=== PATIENT | female | born 1990 | race Caucasian/White ===

== ENCOUNTER 2020-12-06 12:59 | Emergency (ER) | payer OTHER, SELFPAY ==
--- NOTE | 2020-12-06 13:01 | ED.EAR ---
HPI - Ear Problem General Chief complaint: Ear Stated complaint: ear pain Time Seen by Provider: 12/06/20 13:01 Source: patient and RN notes reviewed History of Present Illness HPI Narrative: Patient is a 30-year-old female who presents the urgent care with complaints of left otalgia for approximately 2 to 3 days. Patient states that she has taken Tylenol for the pain. Denies of any other upper respiratory symptoms. Denies of fever, nausea, vomiting, sore throat, cough. No other acute complaints. No acute distress noted. Patient aware of the plan of care. Some parts of this dictation were generated by voice recognition software and may contain typographical and/or grammatical inaccuracies. Related Data Home Medications Medication Instructions Recorded Confirmed No Home Medications 12/06/20 12/06/20 Allergies Allergy/AdvReac Type Severity Reaction Status Date / Time sulfamethoxazole Allergy Intermediate rash Verified 12/06/20 13:30 trimethoprim Allergy Intermediate rash Verified 12/06/20 13:30 Review of Systems Review of Systems: Narrative: CONSTITUTIONAL: Denies fever, chills, or sweats. EYES: Denies visual changes, redness, or discharge. ENT: Denies rhinorrhea, congestion, sore throat. Reports of left otalgia CARDIOVASCULAR: Denies chest pain, palpitations, or edema. RESPIRATORY: Denies cough or dyspnea. GASTROINTESTINAL: Denies abdominal pain, nausea, vomiting, or diarrhea. GENITOURINARY: Denies dysuria or hematuria. SKIN: Denies rash or itching. MUSCULOSKELETAL: Denies back pain, joint pain, or myalgia. NEUROLOGIC: Denies headache, numbness, or weakness. All other systems reviewed are negative, except as documented in HPI. [facility] Surgical History Surgical History (Updated 05/06/19 @ 18:44 by SEBAS Cooper) History of tonsillectomy Hx of cholecystectomy Comments At the time of my signature, I reviewed and agree with the nursing past medical, surgical, social, and family history. There is no relevant family history pertinent to the patient complaint. Exam Narrative: Exam Narrative: GENERAL: This is a well-nourished, well-developed patient, in no apparent distress. HEAD: normocephalic, atraumatic. EYES: PERRL. Sclera clear/white. Vision is grossly intact. EARS: External ears normal, auditory canals clear and without drainage, TMs normal without perforation. Hearing grossly intact. NOSE: External nose normal with no obvious nasal discharge, nares without redness, no rhinorrhea. THROAT: Mucous membranes moist, posterior pharynx clear. NECK: Neck supple CARDIOVASCULAR: Regular rate and rhythm without murmurs, gallops, or rubs. RESPIRATORY: Clear to auscultation. Breath sounds equal bilaterally. No wheezes, rales, or rhonchi. SKIN: warm, intact with no suspicious lesions or rash, good texture and turgor. NEURO: awake, alert, and oriented to person, place and time. There were no obvious focal neurologic abnormalities. EXTREMITIES: No clubbing, cyanosis, or edema. Course Vital Signs Vital signs: Vital Signs Temperature 99.0 F 12/06/20 13:05 Pulse Rate 82 12/06/20 13:05 Respiratory Rate 18 12/06/20 13:05 Blood Pressure 140/88 12/06/20 13:05 Pulse Oximetry 99 12/06/20 13:05 Temperature 99.0 F 12/06/20 13:05 Pulse Rate 82 12/06/20 13:05 Respiratory Rate 18 12/06/20 13:05 Blood Pressure 140/88 12/06/20 13:05 Pulse Oximetry 99 12/06/20 13:05 Reviewed Medical Decision Making MDM Narrative Medical decision making narrative: Advised the patient to use an [id number] oral histamine daily such as Claritin or Zyrtec. Use of Flonase and Benadryl prior to bedtime. Use a warm compress as well as Tylenol/ibuprofen as needed for pain. There is no current infection. Do not submerge her head under any water and do not put anything in the ear such as Q-tips, peroxide, [id number] eardrops. Follow-up with your PCP within 2 to 5 days or for worsening symptoms or failur
[2020-12-06 13:05] VITALS: BP 140/88; PULSE 82; RESP 18; TEMP 37.2; O2SAT 99
== END 2020-12-06 13:12 | disposition home or self-care (01) ==
PROVIDERS: Emergency Provider Nurse Practitioner Family
DX: H92.02 Otalgia, left ear (principal)
CPT/HCPCS: 99211; G0463

== ENCOUNTER 2021-10-06 12:51 | Emergency (ER) | payer OTHER, SELFPAY ==
--- NOTE | ~2021-10-06 | XR_ITS ---
EXAMINATION: XR foot LT min 3V DATE: 10/06/2021 13:34 INDICATION: Diabetic with left foot injury after stepping on glass. TECHNIQUE: Dorsoplantar, two oblique and lateral views of the left foot were obtained. COMPARISON: None. FINDINGS: Alignment is normal. No fracture. Joint spaces appear relatively preserved throughout the left foot. Moderate-sized plantar calcaneal spur. Soft tissues are unremarkable. No evident radiopaque foreign b odies. IMPRESSION: 1. No radiopaque foreign body or acute osseous abnormality. Reviewed, dictated and finalized at location A.
[2021-10-06 13:00] VITALS: BP 157/90; PULSE 96; RESP 17; TEMP 37.2; O2SAT 100
--- NOTE | 2021-10-06 13:11 | ED.SKABFB ---
HPI - Skin/Abscess/Foreign Bdy General Chief complaint: Skin/Abscess/Foreign Body Stated complaint: Left Foot Injury Time Seen by Provider: 10/06/21 13:12 Source: RN notes reviewed and old records reviewed Mode of arrival: ambulatory Limitations: no limitations History of Present Illness HPI narrative: 31-year-old female who presents to [facility] with complaints of possible foreign body in her left foot. Patient states she stepped on a piece of glass last night and wants to make sure that nothing is remaining in her left foot is continued to be tender and is diabetic.Small pinpoint puncture wound to the mid plantar aspect of her left foot no drainage noted minimal bruising present, no visible or palpable debris noted.Patient has full mobility of left foot with strong left pedal pulse present. Onset (ago): hour(s) (last pm) Location: L foot Quality: aching Related Data Home Medications Medication Instructions Recorded Confirmed amlodipine 10 mg PO DAILY 10/06/21 10/06/21 chlorthalidone 25 mg PO DAILY 10/06/21 10/06/21 metformin 500 mg PO DAILY 10/06/21 10/06/21 norethindrone (contraceptive) 0.35 mg PO DAILY 10/06/21 10/06/21 potassium chloride [Klor-Con M20] 20 meq PO DAILY 10/06/21 10/06/21 Allergies Allergy/AdvReac Type Severity Reaction Status Date / Time sulfamethoxazole Allergy Intermediate rash Verified 10/06/21 13:05 trimethoprim Allergy Intermediate rash Verified 10/06/21 13:05 Review of Systems Review of Systems: CONSTITUTIONAL: Denies fever, chills, or sweats. EYES: Denies visual changes, redness, or discharge. ENT: Denies rhinorrhea, congestion, sore throat, or otalgia. CARDIOVASCULAR: Denies chest pain, palpitations, or edema. RESPIRATORY: Denies cough or dyspnea. GASTROINTESTINAL: Denies abdominal pain, nausea, vomiting, or diarrhea. GENITOURINARY: Denies dysuria or hematuria. SKIN: Denies rash or itching.small pinpoint puncture wound to plantar aspect of left foot no swelling of area or acute redness. MUSCULOSKELETAL: Denies back pain, joint pain, or myalgia. NEUROLOGIC: Denies headache, numbness, or weakness. PSYCHIATRIC: Denies anxiety or depression. All systems reviewed & are unremarkable except as noted in HPI and below PMFSH Past Medical History Medical History (Updated 10/07/21 @ 10:04 by Irais Bassett NP) Diabetes Hypertension Surgical History Surgical History History of tonsillectomy Hx of cholecystectomy Social History Social History (Updated 10/06/21 @ 13:20 by Irais Bassett NP) Gender identity (if verbalized by the patient): Female Comments At time of signature, agree with nursing past medical, surgical, social and family history. There is no relevant family history pertinent to the presenting complaint Exam Narrative: GENERAL: Well-appearing, well-nourished,morbid obese and in no acute distress. HEAD: Normocephalic, atraumatic. EYES: PERRLA and EOMI. ENT: Nares clear, no rhinorrhea or epistaxis. Mucous membranes moist.TM's normal with good light reflex throat pink with no lesions or exudates, tonsils absent NECK: Supple.no lymphadenopathy CHEST: Clear to auscultation. No respiratory distress.SAO2 100% on room air HEART: Regular rate and rhythm. No murmur heard. Normal peripheral pulses. ABDOMEN: Soft, nontender, nondistended, normal active bowel sounds. EXTREMITIES: Normal range of motion. No edema.Small puncture wound to plantar aspect of mid left foot with no swelling or debris noted or any redness, examination under light and palpated with no foreign body identified, circulation sensation and mobility is intact SKIN: Warm, dry, no rash. NEURO: No focal deficits. Alert and oriented x3. Course Course Level of Care: Express Care Visit Vital Signs Vital signs: Vital Signs Temperature 37.2 C 10/06/21 13:00 Pulse Rate 96 10/06/21 13:00 Respiratory Rate 17 10/06/21 13:00 Blood Pressure 157/90 H
--- NOTE | 2021-10-06 13:15 | PC.NURSE ---
BP elevated, pt states she did not take her BP medications this morning . Encouraged to do so when she returns home. [employer] aware
== END 2021-10-06 13:58 | disposition home or self-care (01) ==
PROVIDERS: Emergency Provider Registered Nurse; PCP Family Medicine
DX: S91.312A Laceration without foreign body, left foot, initial encounter (principal); W25.XXXA Contact with sharp glass, initial encounter; E11.9 Type 2 diabetes mellitus without complications; I10 Essential (primary) hypertension
CPT/HCPCS: 73630; 99213; G0463

== ENCOUNTER 2022-01-02 10:01 | Emergency (ER) | payer OTHER, SELFPAY ==
[2022-01-02 10:10] VITALS: BP 144/88; PULSE 72; RESP 20; TEMP 37.3; O2SAT 100
--- NOTE | 2022-01-02 10:10 | ED.DENTAL ---
HPI - Dental/Oral General Chief complaint: Dental/Oral Stated complaint: Right Ear Pain/Toothache Time Seen by Provider: 01/02/22 10:11 Source: patient Mode of arrival: ambulatory Limitations: no limitations History of Present Illness HPI Narrative: Ms. Henderson is a 31-year-old female patient presenting to the clinic today with complaints of dental pain and right ear pain x3 days. She denies any fever or chills. She denies any URI symptoms. She denies any known exposure to COVID, flu, or strep. Related Data Home Medications Medication Instructions Recorded Confirmed amlodipine 10 mg tablet 10 mg PO DAILY 10/06/21 10/06/21 chlorthalidone 25 mg tablet 25 mg PO DAILY 10/06/21 10/06/21 metformin 500 mg tablet,extended 500 mg PO DAILY 10/06/21 10/06/21 release 24 hr norethindrone (contraceptive) 0.35 0.35 mg PO DAILY 10/06/21 10/06/21 mg tablet potassium chloride 20 mEq 20 meq PO DAILY 10/06/21 10/06/21 tablet,extended release(part/cryst) (Klor-Con M) Allergies Allergy/AdvReac Type Severity Reaction Status Date / Time sulfamethoxazole Allergy Intermediate rash Verified 10/06/21 13:05 trimethoprim Allergy Intermediate rash Verified 10/06/21 13:05 Review of Systems Review of Systems: pertinent positives per HPI. Patient denies any fever, chills, rash, headache, visual changes, dizziness, cough, runny nose, sore throat, shortness of breath, chest pain, palpitations, nausea, vomiting, diarrhea, constipation, abdominal pain, or any urinary issues. [facility] Past Medical History Medical History Diabetes Hypertension Surgical History Surgical History History of tonsillectomy Hx of cholecystectomy Social History Social History Gender identity (if verbalized by the patient): Female Comments At the time of my signature, I reviewed and agree with the nursing past medical, surgical, social, and family history. There is no relevant family history pertinent to the patient complaint. Exam Narrative: General: Well-developed, well nourished, in no apparent distress Head: Normocephalic, atraumatic Eyes: Pupils equally round and reactive to light bilaterally, EOM intact, sclera and conjunctive clear, no discharge, lids normal Ears: Left TMs intact and clear, right TM intact, bulging, red, ear canals clear, no drainage, grossly hearing normal. Nose: Nares patent, no discharge, no inflammation, no sinus tenderness. Mouth: Oropharynx without lesions or masses, very poor dentition, MMM. Tooth pain number #3 with cavity and redness Neck: Supple, trachea midline, no enlargement of anterior or posterior cervical nodes, no thyroid masses or goiter palpable. Cardio: Regular rate and rhythm, s1 and s2 normal, no murmur appreciated. Resp: Clear to auscultation bilaterally anteriorly and posteriorly, no rhonchi, rales, wheezing or rubs Course Course Emergency Course: Portions of this record may have been created with voice recognition software. Level of Care: Express Care Visit Vital Signs Vital signs: Vital signs reviewed MDM - Dental/Oral MDM Narrative Medical decision making narrative: At the time of visit patient is resting comfortably on the exam table. Patient has right otitis media's and right upper dental infection to the #3 molars. We will send in a prescription for some amoxicillin and supportive measures were discussed with the patient she voiced understanding of discharge instructions and agrees to treatment plan. Differential Diagnosis Differential diagnosis: Likely dental caries, toothache, dental abscess, fracture of tooth and other (Right otitis media, otitis externa, eustachian tube dysfunction, otalgia) Discharge Plan Discharge Clinical Impression: Toothache, Acute right otitis media Patient Disposition: [facility]
== END 2022-01-02 10:28 | disposition home or self-care (01) ==
PROVIDERS: Emergency Provider Nurse Practitioner Family; PCP Family Medicine
DX: K08.89 Other specified disorders of teeth and supporting structures (principal); H66.91 Otitis media, unspecified, right ear; E11.9 Type 2 diabetes mellitus without complications; I10 Essential (primary) hypertension; Z79.84 Long term (current) use of oral hypoglycemic drugs
CPT/HCPCS: 99213; G0463

== ENCOUNTER 2022-01-07 11:53 | Emergency (ER) | payer OTHER, SELFPAY ==
[2022-01-07 11:56] VITALS: BP 155/118; PULSE 81; RESP 20; TEMP 37; O2SAT 100
--- NOTE | 2022-01-07 11:56 | ED.EAR ---
HPI - Ear Problem General Chief complaint: Ear Stated complaint: Right Ear Pain Time Seen by Provider: 01/07/22 11:55 Source: patient Mode of arrival: ambulatory Limitations: no limitations History of Present Illness HPI Narrative: Ms. Henderson is a 31-year-old female patient presenting to the clinic today with complaints of right ear pain. I saw her on 02 January and she was given amoxicillin for right ear infection. She reports that the pain is still there and she is on 5 days of antibiotics. She denies any fever chills Related Data Home Medications Medication Instructions Recorded Confirmed amlodipine 10 mg tablet 10 mg PO DAILY 10/06/21 01/07/22 chlorthalidone 25 mg tablet 25 mg PO DAILY 10/06/21 01/07/22 Allergies Allergy/AdvReac Type Severity Reaction Status Date / Time sulfamethoxazole Allergy Intermediate rash Verified 10/06/21 13:05 trimethoprim Allergy Intermediate rash Verified 10/06/21 13:05 Review of Systems Review of Systems: Pertinent positives per HPI. Patient denies any fever, chills, rash, headache, visual changes, dizziness, cough, runny nose, sore throat, shortness of breath, chest pain, palpitations, nausea, vomiting, diarrhea, constipation, abdominal pain, or any urinary issues. PEND[facility] SALE TO [facility] Past Medical History Medical History Diabetes Hypertension Surgical History Surgical History History of tonsillectomy Hx of cholecystectomy Social History Social History Gender identity (if verbalized by the patient): Female Comments At the time of my signature, I reviewed and agree with the nursing past medical, surgical, social, and family history. There is no relevant family history pertinent to the patient complaint. Exam Narrative: General: Well-developed, morbidly obese, in no apparent distress Head: Normocephalic, atraumatic Eyes: Pupils equally round and reactive to light bilaterally, EOM intact, sclera and conjunctive clear, no discharge, lids normal Ears: Right TMs intact and dull and congested, left TM clear and intact, ear canals clear, no drainage, grossly hearing normal. Nose: Nares patent, no discharge, no inflammation, no sinus tenderness. Mouth: Oropharynx without lesions or masses, good dentition, MMM. Neck: Supple, trachea midline, no enlargement of anterior or posterior cervical nodes, no thyroid masses or goiter palpable. Cardio: Regular rate and rhythm, s1 and s2 normal, no murmur appreciated. Resp: Clear to auscultation bilaterally anteriorly and posteriorly, no rhonchi, rales, wheezing or rubs right Course Course Emergency Course: Portions of this record may have been created with voice recognition software. Level of Care: Express Care Visit Vital Signs Vital signs: Vital signs reviewed Medical Decision Making MDM Narrative Medical decision making narrative: At the time of visit patient is resting comfortably on the exam table. It appears that the right otitis media has mostly resolved but she still has some congestion and pressure behind the right tympanic membrane. I will give her a prescription for some prednisone to help dry up the secretions and open up the eustachian tube dysfunction. Supportive measures were discussed with the patient she voiced understanding of discharge instructions and agrees to treatment plan Differential Diagnosis Differential Diagnosis: Otitis media, otitis externa, otitis serous, eustachian tube dysfunction Discharge Plan Discharge Clinical Impression: Acute dysfunction of right eustachian tube Patient Disposition: Home, Self-Care Condition: Stable Instructions: Antibiotic Form, Earache (ED) Additional Instructions: Take prednisone as prescribed Continue taking the amoxicillin until finished Tylenol/motrin as needed for pain May
[2022-01-07 12:15] VITALS: BP 110/60
== END 2022-01-07 12:15 | disposition home or self-care (01) ==
PROVIDERS: Emergency Provider Nurse Practitioner Family; PCP Family Medicine
DX: H69.91 Unspecified Eustachian tube disorder, right ear (principal); E11.9 Type 2 diabetes mellitus without complications; I10 Essential (primary) hypertension
CPT/HCPCS: 99213; G0463

== ENCOUNTER 2022-09-03 18:57 | Emergency (ER) | payer OTHER, SELFPAY ==
[2022-09-03 19:03] VITALS: BP 145/99; PULSE 91; RESP 16; TEMP 36.6; O2SAT 100
--- NOTE | 2022-09-03 19:19 | ED.SKABFB ---
HPI - Skin/Abscess/Foreign Bdy General Chief complaint: Skin/Abscess/Foreign Body Stated complaint: Skin Sore Source: patient and RN notes reviewed History of Present Illness HPI narrative: 32 yo F presents to urgent care with complaints of swelling and redness to right middle finger, next to her nail. Pt states she has had this for the last 4 days. Pt reports some numbness and tingling to the area. Denies any drainage or fevers. Pt has been soaking it in warm water with antibacterial soap. Related Data Home Medications Medication Instructions Recorded Confirmed amlodipine 10 mg tablet 10 mg PO DAILY 09/03/22 09/03/22 chlorthalidone 25 mg tablet 25 mg PO DAILY 09/03/22 09/03/22 Allergies Allergy/AdvReac Type Severity Reaction Status Date / Time sulfamethoxazole Allergy Intermediate rash Verified 09/03/22 19:08 trimethoprim Allergy Intermediate rash Verified 09/03/22 19:08 Review of Systems Review of Systems: CONSTITUTIONAL: Denies fever, chills, or sweats. EYES: Denies visual changes, redness, or discharge. ENT: Denies otalgia and sore throat CARDIOVASCULAR: Denies chest pain, palpitations, or edema. RESPIRATORY: Denies cough or dyspnea. GASTROINTESTINAL: Denies abdominal pain, nausea, vomiting, or diarrhea. GENITOURINARY: Denies dysuria or hematuria. SKIN: Right middle finger redness MUSCULOSKELETAL: Denies back pain, joint pain, or myalgia. NEUROLOGIC: Denies headache, numbness, or weakness. Pertinent positives per HPI. PMFSH Past Medical History Medical History Diabetes Hypertension Surgical History Surgical History History of tonsillectomy Hx of cholecystectomy Social History Social History Gender identity (if verbalized by the patient): Female Comments At the time of my signature, I reviewed and agree with the nursing past medical, surgical, social, and family history. There is no relevant family history pertinent to the patient complaint. Exam Narrative: GENERAL: This is a well-nourished, well-developed patient, in no apparent distress. HEAD: normocephalic, atraumatic. EYES: Sclera clear/white. Vision is grossly intact. EARS: External ears normal, auditory canals clear and without drainage. Hearing grossly intact. NECK: Neck supple, non-tender without lymphadenopathy, masses or thyromegaly. CARDIOVASCULAR: Regular rate RESPIRATORY: No respiratory distress SKIN: right middle finger noted to have erythremia and swelling to side of nailbed with small area of fluctuance. no drainge noted. NEURO: awake, alert, and oriented to person, place and time. There were no obvious focal neurologic abnormalities. EXTREMITIES: No clubbing, cyanosis, or edema. No joint tenderness, effusion, or edema noted. Course Course Level of Care: Express Care Visit Vital Signs Vital signs: Vital Signs Temperature 98 F 09/03/22 19:03 Pulse Rate 91 09/03/22 19:03 Respiratory Rate 16 09/03/22 19:03 Blood Pressure 145/99 H 09/03/22 19:03 Pulse Oximetry 100 09/03/22 19:03 Oxygen Delivery Room Air 09/03/22 19:03 Temperature 98 F 09/03/22 19:03 Pulse Rate 91 09/03/22 19:03 Respiratory Rate 16 09/03/22 19:03 Blood Pressure 145/99 H 09/03/22 19:03 Pulse Oximetry 100 09/03/22 19:03 Oxygen Delivery Room Air 09/03/22 19:03 Reviewed Procedures Abscess I/D hand: Date of Incision: 09/03/22 Time of Incision: 19:10 Side (if applicable): right Sedation/analgesia: none Local Anesthetic: none Technique: needle aspiration Irrigation: No Packing used?: none I&D Results: Pus Complications: other (none) Abcess I&D Additional Comments: paronychia drained. culture sent. pt tolerated well. dressed with Abx ointment and bandaid.
== END 2022-09-03 19:30 | disposition home or self-care (01) ==
PROVIDERS: Emergency Provider Nurse Practitioner Family; PCP Family Medicine
DX: L03.011 Cellulitis of right finger (principal); E11.9 Type 2 diabetes mellitus without complications; I10 Essential (primary) hypertension
CPT/HCPCS: 10160; 87070; 87077; 87205; 99213; G0463

== ENCOUNTER 2024-03-15 12:17 | Emergency (ER) | payer OTHER, SELFPAY ==
--- NOTE | ~2024-03-15 | XR_ITS ---
EXAMINATION: XR foot LT min 3V DATE: 03/15/2024 14:03 INDICATION: Left foot pain. TECHNIQUE: 4 views of left foot were obtained. COMPARISON: Left foot radiographs 10/06/2021 FINDINGS: Alignment is normal. No fracture. There is mild osteoarthritis of first metatarsophalangeal joint and some of the interphalangeal joints and talonavicular joint. There are enthesophytes at the posterior and plantar aspects of calcaneal tuberosity. IMPRESSION: 1. Mild polyarticular osteoarthritis. Reviewed, dictated and finalized at location B.
[2024-03-15 12:30] VITALS: BP 147/89; PULSE 81; RESP 20; TEMP 37.1; O2SAT 100
--- NOTE | 2024-03-15 14:04 | ED.LOWEXIN ---
HPI - Extremity Injury (Lower) General Chief Complaint: Extremity Injury, Lower Stated Complaint: Knee/foot injury Time Seen by Provider: 03/15/24 12:40 Source: patient, RN notes reviewed and old records reviewed Mode of arrival: ambulatory Limitations: no limitations History of Present Illness HPI Narrative: 33-year-old female to Express Care with complaint of intermittent right knee discomfort and popping. Patient states that approximately 1 week ago when she went to sit down at a movie theater she felt a pop in her knee with mild discomfort. Patient denies any prior injury, surgery, numbness, tingling, weakness. Patient has attempted to treat symptoms at home with Tylenol with little relief. Patient also complaining of left lateral foot pain 6/10 with ambulation. Patient states that 2 weeks ago she went on a 30 minute walk and has had the pain ever since. Patient denies injury, prior history, numbness, tingling, weakness. Patient has treated with Tylenol and massage with little relief. Patient ambulates with steady gait. Patient resting comfortably in exam room in no acute distress. Related Data Home Medications Medication Instructions Recorded Confirmed amlodipine 10 mg tablet 10 mg PO DAILY 09/03/22 03/15/24 chlorthalidone 25 mg tablet 25 mg PO DAILY 09/03/22 03/15/24 irbesartan 150 mg tablet 150 mg PO DAILY 03/15/24 03/15/24 metformin 500 mg tablet,extended 500 mg PO DAILY 03/15/24 03/15/24 release 24 hr norelgestromin 150 mcg-e.estradiol See Rx Instructions .Route .COMPLEX 03/15/24 03/15/24 35 mcg/24 hr weekly transderm patch (Zafemy) phentermine 15 mg capsule 15 mg PO DAILY 03/15/24 03/15/24 Allergies Allergy/AdvReac Type Severity Reaction Status Date / Time sulfamethoxazole Allergy Intermediate rash Verified 09/03/22 19:08 trimethoprim Allergy Intermediate rash Verified 09/03/22 19:08 Review of Systems Review of Systems: All systems reviewed & are unremarkable except as noted in HPI and below Constitutional: Constitutional: Reports no additional constitutional complaints Eyes: Eyes: Reports no additional eye complaints ENT: Reports system reviewed and no additional complaints, except as documented Cardiovascular: Cardiovascular: Reports no additional cardiovascular complaints, Denies chest pain and Denies dyspnea Respiratory: Respiratory: Reports no additional respiratory complaints, Denies cough and Denies dyspnea Musculoskeletal: Musculoskeletal: Reports as per HPI and Reports arthralgias ( Right knee; left lateral foot) Neurologic: Reports system reviewed and no additional complaints, except as documented Psychiatric: Psychiatric: Reports no additional psychiatric complaints [facility] Past Medical History Medical History Diabetes Hypertension Surgical History Surgical History History of tonsillectomy Hx of cholecystectomy Social History Social History Gender identity (if verbalized by the patient): Female Comments At the time of my signature, I reviewed and agree with the nursing past medical, surgical, social, and family history. There is no relevant family history pertinent to the patient complaint. Exam Const: General: cooperative, comfortable, no acute distress, alert, ill appearing chronically, well nourished and obese Nutritional Appearance: well nourished Orientation/consciousness: patient oriented x3 Limitations: no limitations HENMT: Head: normal to inspection Ears: external ears normal Face/Nose/Sinus: Normal external nose present, Normal nares present, normal facial exam, No erythema and No edema Face and sinus: normal facial exam, no erythema and no edema Mouth: Yes Normal oral and palatal mucosa present Eyes: General: appearance normal, both eyes and all related structures Neck: Neck: normal visual inspection, full ROM and no meningeal signs Chest: Chest palpation & inspection: normal inspection of the chest Resp: Effort & Inspection: normal respiratory effort and able to speak in complete sentences Auscultation: clear to auscultation bilaterally Cardio: Jugular venous distension: no JVD Rate: regular rate Rhythm: regular rhythm Back/Spine/Pelvis: Cervical Spine: cervical ROM normal Skin: General skin exam: normal color, no rashes or lesions noted and turgor normal Neuro: General: patient oriented x3, gait normal, moves all extremities and no meningeal signs Speech: normal speech Gait exam (Neuro): Normal gait present Extrem: General: full ROM and capillary refill normal Right lower extremity: full ROM, normal capillary refill and knee Details: normal ROM, Mellissa's Test Details: negative medially and laterally, Apley's Test Details: negative and crepitus Location: at the kneww; no tenderness, no swelling and no ecchymosis; no cyanosis and no edema Left lower extremity: foot Details: normal capillary refill and tenderness Location: of the lateral foot ( tenderness) Location: in the mid-section Psych: Appearance: grossly normal and well kempt Course Course Emergency Course: Some parts of this dictation were generated by voice recognition software and may contain typographical and/or grammatical inaccuracies. Level of Care: Express Care Visit Vital Signs Vital signs: Vital Signs Temperature 37.1 C 03/15/24 12:30 Pulse Rate 81 03/15/24 12:30 Respiratory Rate 20 03/15/24 12:30 Blood Pressure 147/89 H 03/15/24 12:30 Pulse Oximetry 100 03/15/24 12:30 Oxygen Delivery Room Air 03/15/24 12:30 Temperature 37.1 C 03/15/24 12:30 Pulse Rate 81 03/15/24 12:30 Respiratory Rate 20 03/15/24 12:30 Blood Pressure 147/89 H 03/15/24 12:30 Pulse Oximetry 100 03/15/24 12:30 Oxygen Delivery Room Air 03/15/24 12:30 reviewed MDM - Extremity Injury (Lower) MDM Narrative Medical decision making narrative: 33-year-old female to Express Care with complaint of intermittent right knee discomfort and popping. Patient states that approximately 1 week ago when she went to sit down at a movie theater she felt a pop in her knee with mild discomfort. Patient denies any prior injury, surgery, numbness, tingling, weakness. Patient has attempted to treat symptoms at home with Tylenol with little relief. Patient also complaining of left lateral foot pain 6/10 with ambulation. Patient states that 2 weeks ago she went on a 30 minute walk and has had the pain ever since. Patient denies injury, prior history, numbness, tingling, weakness. Patient has treated with Tylenol and massage with little relief. Patient ambulates with steady gait. Patient resting comfortably in exam room in no acute distress. on exam, intermittent crepitus with ROM of right knee. Left mid dorsal lateral foot tenderness with palpation. exam otherwise unremarkable. radiology left foot impression: Mild polyarticular osteoarthritis Patient is sitting comfortably in exam room nontoxic in appearance. Patient appropriate for outpatient treatment and follow-up. Discharge instructions reviewed with patient, as well as provided in writing per nursing staff. The instructions also include specific and strict return/GO TO THE ER as well as f/u information. All questions have been answered, and the patient deny any further questions with discharge and discharge plan. Some parts of this dictation were generated by voice recognition software and may contain typographical and/or grammatical inaccuracies. Differential Diagnosis Differential diagnosis: Likely ankle sprain and strain, acute internal derangement of knee, fracture of femur, fracture of hip, puncture wound of foot, fracture of toe and ankle fracture Imaging Data Radiologist's impression: EXAMINATION: XR foot LT min 3V DATE: 03/15/2024 14:03 INDICATION: Left foot pain. TECHNIQUE: 4 views of left foot were obtained. COMPARISON: Left foot radiographs 10/06/2021 FINDINGS: Alignment is normal. No fracture. There is mild osteoarthritis of first metatarsophalangeal joint and some of the interphalangeal joints and talonavicular joint. There are enthesophytes at the posterior and plantar aspects of calcaneal tuberosity. IMPRESSION: 1. Mild polyarticular osteoarthritis Discharge Plan Discharge Clinical Impression: Acute pain of right knee, Osteoarthritis of foot, left Patient Disposition: Home, Self-Care Condition: Stable Instructions: Osteoarthritis (ED), Knee Pain (ED) Additional Instructions: please review touch instructions regarding knee pain and osteoarthritis and implement suggestions as tolerated. Rest, ice, elevate alternate Tylenol ibuprofen as needed for new or worsening symptoms go directly to the emergency department Prescriptions: No Action chlorthalidone 25 mg tablet 25 mg PO DAILY amlodipine 10 mg tablet 10 mg PO DAILY phentermine 15 mg capsule 15 mg PO DAILY irbesartan 150 mg tablet 150 mg PO DAILY metformin 500 mg tablet extended release 24 hr 500 mg PO DAILY norelgestromin-ethin.estradiol [Zafemy] 150-35 mcg/24 hr patch weekly See Rx Instructions .ROUTE .COMPLEX Rx Instructions: PRESCRIBED Follow-up/Referrals: Belen,Kely Casey MD [Primary Care Provider] -
== END 2024-03-15 14:50 | disposition home or self-care (01) ==
PROVIDERS: Emergency Provider Nurse Practitioner Family; PCP Family Medicine
DX: M25.561 Pain in right knee (principal); M19.072 Primary osteoarthritis, left ankle and foot; E11.9 Type 2 diabetes mellitus without complications; Z79.84 Long term (current) use of oral hypoglycemic drugs; I10 Essential (primary) hypertension
CPT/HCPCS: 73630; 99213; G0463

== ENCOUNTER 2024-06-15 12:38 | Emergency (ER) | payer OTHER, SELFPAY ==
[2024-06-15 12:41] VITALS: BP 156/97; PULSE 87; RESP 16; TEMP 36.9; O2SAT 100
--- OUTSIDE RECORDS SUMMARY | 2024-06-15 13:27 | XMS_ITS | Clinical Summary ---
Author Organization [facility] [address] Address [address] [place] [address] Care Team Providers Care Blending Supervisor Name Role Phone Kely Torres MD Primary Care Provider [phone] Allergies Active Allergy Reactions Criticality Noted Date Comments Sulfamethoxazole-Trimethoprim Rash Medium 2017 Sulfa (Sulfonamide Antibiotics) Rash Medium 02/15 Medications metFORMIN XR (GLUCOPHAGE XR) 500 mg 24 hr tablet Take 1 tablet (500 mg total) by mouth daily with breakfast 30 tablet 2 Active norethindrone (MICRONOR) 0.35 mg tabletIndications: Contraception Take 1 tablet (0.35 mg total) by mouth daily 28 tablet 12 2 Active amLODIPine (NORVASC) 10 mg tablet TAKE 1 TABLET BY MOUTH EVERY DAY 14 tablet 2 Active chlorthalidone 25 mg tablet TAKE 1 TABLET (25 MG TOTAL) BY MOUTH DAILY. 14 tablet 2 Active Active Problems Problem Noted Date Diagnosed Date Prediabetes 07/09/2021 Assessment & Plan (07/09/2021 1:13 PM LINE INSTALLER TROLLEY): A1C 5.8. - Continue Metformin 500mg daily - Diet and Exercise - Repeat 3-6 months Essential hypertension 06/26/2021 Assessment & Plan (07/17/2021 3:28 PM LINE INSTALLER TROLLEY): Improved. Continue current medications. Refills given. F/u 3 months Assessment & Plan (07/09/2021 12:56 PM LINE INSTALLER TROLLEY): Ongoing - Increase amlodipine to 10 mg daily. Start chlorthalidone 25 mg daily. Risks/benefits and alternatives discussed. - recheck potassium level in 1 week -continue low-salt diet/DASH diet - continue to work on weight loss - repeat blood pressure check in 1 Assessment & Plan (06/26/2021 2:14 PM LINE INSTALLER TROLLEY): New diagnosis. Start Amlodipine 5 mg daily. Risks/benefits and alternatives discussed.Home BP monitoring x2 week. Log given DASH and low carb diet - handout given F/u 2 weeks Morbid obesity with BMI of 50.0-59.9, adult 01/2022 Assessment & Plan (07/17/2021 3:28 PM LINE INSTALLER TROLLEY): Continue to diet and exercise Assessment & Plan (07/09/2021 12:58 PM LINE INSTALLER TROLLEY): Reviewed lab results with patient today. No concerning results Continue to work on diet and exercise Encouraged evaluation with bariatric surgery to discuss treatment options Assessment & Plan (06/26/2021 2:15 PM LINE INSTALLER TROLLEY): BMI 57 Dietary and exercise recommendations given Will review labs ordered 05/2021 Bariatric surgery consult placed Will continue to monitor weight Heel spur, left 08/07/2018 Pain of left heel 08/07/2018 Immunizations Name Administration Dates Next Due DTP 11/23/1996, 4,1991,09/11,1991 Hep A, Pediatric 12/29/2005 Hep B, Adolescent or Pediatric 11/23/1996,1996,05/28/1996 HiB 08/14/1993, 2,1991,07/15 Influenza, Quadrivalent, Elizabeth l Culture-based MDCK, Preservative Free, Antibiotic Free, Intramuscular 03/22/2021 MMR 01/28/1995,08/14/1993 Meningococcal C Conjugate 12/29/2005 OPV 11/23/1996, 4,1991,07/15 Pneumococcal Polysaccharide PPV23 03/22/2021 Td, adsorbed 12/29/2005 Varicella 12/20/2001 Surgical History Surgery Date Site/Laterality Comments CHOLECYSTECTOMY TONSILECTOMY, ADENOIDECTOMY, BILATERAL MYRINGOTOMY AND TUBES Bilateral Social History Tobacco Use Types Packs/Day Years Used Date Smoking Tobacco: Never Smokeless Tobacco: Never Tobacco Cessation:Counseling Given: Yes AUDIT-C Answer Date Recorded Q1: How often do you have a drink containing alc ohol? Never 06/06/2021 Average Number of Drinks Not on file 022 Frequency of Binge Drinking Not on file 05/19 PHQ-2 Answer Date Recorded PHQ-2 Total Score (If total score is 3 or more points, staff should administer the PHQ-9) 0 06/26/2021 Personal Safety Answer Date Recorded Getting School Help Needed Not on file 07/31 Comments No Sex and Gender Information Value Date Recorded Sex Assigned at Not on file Legal Sex Female 7:41 AM LINE INSTALLER [facility] Gender Identity Female 10/12/2021 12:47 PM CDT Sexual Orientation Straight 06/21/2021 7: 09 PM LINE INSTALLER [facility] Occupation Industry Job Start Date Job End Date Not on file Not on file Not on file Not on file Obstetrics History Last Filed Vital Signs Vital Sign Reading Time Taken Comments Blood Pressure 120/80 07/17/2021 1:34 PM LINE INSTALLER [facility]OLLEY Pulse 101 07/17/2021 1:34 PM LINE INSTALLER [facility]OLLEY Temperature 36.3 ??C (97.3 ??F) 07/17/2021 1:34 PM CS T Respiratory Rate 20 07/17/2021 1:34 PM LINE INSTALLER [facility]OLLEY Oxygen Saturation 98% 07/17/2021 1:34 PM LINE INSTALLER [facility]OLLEY Inhaled Oxygen Concentration - - Weight 141.5 kg (312 lb) 07/17/2021 1:34 PM LINE INSTALLER [facility]LEY Height 157.5 cm (5' 2 ) 07/09/2021 11:29 AM LINE INSTALLER TROLLEY Body Mass Index 57.07 07/09/2021 11:29 AM LINE INSTALLER [facility]LEY Plan of Treatment Health Maintenance Due Date Last Done Comments Hepatitis C Screening 1990 Varicella Vaccines (2 of 2 - 2-dose childhood series) 03/14/2002 12/20/2001 DTaP/Tdap/Td Vaccine (6 - Tdap) 12/30/2005 12/29/2005, 11/23/1996, 08/14/1993, Additional history exists Cervical Cancer Screening 06/06/2022 06/06/2021 Regular Well Visit/Exam 18-64 06/06/2022 06/06/2021 Depression Screening 06/26/2022 06/26/2021 Covid-19 Vaccine ( season) 2024 03/22/2021, 09/28/2020 Influenza Vaccine (#1) 2024 04/16/2022, 2020 Pneumococcal vaccine <65 Aged Out 03/22/2021 No longer eligible based on patient's age to complete this topic HPV Vaccines Aged Out No longer eligi ble based on patient's age to complete this topic Procedures Procedure Name Priority Date/Time Associated Diagnosis Comments PAP AND HIGH RISK HPV, REFLEX TO GENOTYPING Routine 06/06/2021 9:40 AM LINE INSTALLER [facility]OLLEY Encounter for screening for malignant neoplasm of cervix from Last 3 Months or Most Recently Relevant to Health Maintenance Results * Pap and High Risk HPV, reflex to Genotyping (06/06/2021 9:40 AM LINE INSTALLER TROLLEY) Swab (Pap test) 06/06/2021 9 :40 AM LINE INSTALLER TROLLEY 06/06/2021 9:40 AM LINE INSTALLER TROLLEY Narrative PATHOLOGY [facility] ([facility]) - 06/10/2021 3:03 PM LINE INSTALLER TROLLEY [facility] Department of Pathology [address] [place] [address] Final Report with Addendum Note to Patients: This report may contain a detailed description of human tissue sent by a health care provider to the laboratory for pathologic evaluation. The content of this report is essential for diagnosis and may provide important critical findings. This information may be unfamiliar to patients to review without a medical professional present. It is advised that the patient review this report in the presence of a health care provider who can answer questions and explain the details. Patient Name: ??SHIRLEY HENDERSON I. Address: ??[address] [place] [address] [address], ?? [place], [place] [address] Gender: ??F : ??1990 (Age: 31) Service: ??Laboratory Location: ??Lab [facility] #: ??[id number] Patient Type: ??[facility] Lab Taken: ??06/06/2021 Received: ??06/06/2021 Accessioned:: ??06/07/2021 Reported: ??06/10/2021 Physician(s): Kathy Valdivia D.O. Diagnosis: Source of Specimen: ? SCREENING THIN PREP IMAGED PAP w/ HPV Specimen Adequacy: ?- Specimen satisfactory for interpretation; endocervical/transformation zone component absent or ?insufficient General Category: ?- Negative for intraepithelial lesion or malignancy ?? MILDRED Sanchez(ASCP) Report Electronically Reviewed and Signed Out By ??MILDRED Sanchez(ASCP) ??06/10/2021 15:03:44 ??Addenda: HPV Test Interpretation NEGATIVE for types 16, 18, 31, 33, 35, 39, 45, 51, 52, 56, 58, 59, 66 and 68. Test performed utilizing Gen-Probe Aptima assay. ?? MILDRED Palomares(ASCP) ??Report Electronically Reviewed and Signed Out By ??MILDRED Palomares(ASCP) ??06/08/2021 15:08:52 ? Specimen(s) Received: A: SCREENING THIN PREP IMAGED PAP w/ HPV Clinical History: Last Menstrual Period: unknown The Pap test is a screening test used to aid in the detection of cervical cancer and its precursors. ??It should not be the sole means by which malignant and premalignant lesions are diagnosed. ??Both false negative and false positive results may occur. ?? It also has poor sensitivity for the detection of endometrial lesions and should not be used to evaluate suspected endometrial abnormalities. ??For these reasons it is most important to obtain Pap tests at regular intervals. The performance characteristics of some immunohistochemical stains, fluorescence in-situ hybridization tests and immunophenotyping by flow cytometry cited in this report (if any) were determined by the Surgical Pathology Department at [facility] as part of an ongoing quality manager program and in compliance with federally mandated regulations drawn from the Clinical Laboratory Improvement Act of 1988 (CLIA '88). ??Some of these tests rely on the use of analyte specific reagents and are subject to specific labeling requirements by the US Food and Drug Administration. ??Such diagnostic tests may only be performed in a facility that is certified by the Department of Health and Human Services as a high complexity laboratory under CLIA '88. The FDA has determined that such clearance or approval is not necessary. ??This test is used for clinical purposes. ??It should not be regarded as investigational or for research. ??Nevertheless, federal rules concerning the medical use of analyte specific reagents require that the following disclaimer be attached to the report: This test was developed and its performance characteristics determined by the Surgical Pathology Department [facility]. ??It has not been cleared or approved by the U. S. Food and Drug Administration. Carmen Bianchi DO LAB CYTOLOGY ORDERABLES Final Result Performing Organization Address City/State/[facility] Co de Phone Number PATHOLOGY [facility] [address] [place] [address] from Last 3 Months or Most Recently Relevant to Health Maintenance Insurance [employer] [facility] [place] [address] [employer] OPEN ACCESS [employer] ACCESS Care Teams Blending Supervisor Relationship Specialty Start Date End Date Kely Torres MD [address] [place] [address] PCP - General Obstetrics and Gynecology 01/20/24
--- OUTSIDE RECORDS SUMMARY | 2024-06-15 13:27 | XMS_ITS | Data Portability ---
Author Organization [facility] Address [address] [place] [address] Care Team Providers Care Special Weapons Unit Officer Name Role ABIGAIL Abrams Primary Care Provider Unavailab ABIGAIL Rees Director Medical Unavailable Assessment No assessment recorded. Plan of Treatment Reminders Order Date Submit Date Provider Last Modified By Organization Details Last Modified Time Details Appointments None recorded. Lab lipid panel, serum 2023 024 [facility], [address] [place] [address], [address], 4 03:35:46 CMP, serum or plasma 2023 024 [facility], [address] [place] [address], [address], 4 03:35:46 CBC 2023 024 [facility], [address] [place] [address] [place], [place], [address], 4 03:35:49 TSH, ultra-sensi tive, serum 2023 024 [facility], [address] [facility], [facility] [address], [address], 4 03:35:47 prolactin, serum 2023 024 [facility], [address] [facility], [facility] [address], [place], [address], 4 03:35:49 17-hydroxyp rogesterone , QN, serum 2023 024 [facility], [address] [facility], [address], [place], [address], 4 03:35:50 testosteron e, total, serum 2023 024 [facility], [address] [facility], [facility] 2, [place], [address], 4 03:35:48 HbA1c (hemoglobin A1c), blood 2023 024 [facility], [address] [facility], [facility] [address], [place], [address], 4 03:35:48 test, urine 2023 024 [email or web address] In-Office Order, Internal Use Only DO Not Attach Compendium DO Not Attach Compendium, Do Not Delete/merge, [id number] 08:32:44 D-dimer, quant, plasma 2023 024 [facility], [address] [place], [address], 4 17:32:37 test, urine 2023 024 [facility] In-Office Order, Internal Use Only DO Not Attach Compendium DO Not Attach Compendium, Do Not Delete/merge, [id number] 4 17:09:04 Referral None recorded. Procedures None recorded. Surgeries None recorded. Imaging None recorded. Medication Orders metformin ER 500 mg tablet,exte nded release 24 hr 2023 024 [email or web address] 6 [email or web address], [address], [place], [place], [id number], 4 15:17:22 chlorthalid one 25 mg tablet 2023 024 [facility] #88869, [address], [place], [place], [id number], 4 14:25:42 irbesartan 150 mg tablet 2023 024 [facility] #42449, [address] , [place], [place], [id number], 4 15:14:37 famotidine 20 mg tablet 2023 024 [facility] #88347, [address] , [place], [place], [id number], 4 17:59:35 norethindro ne (contracept madhu) 0.35 mg tablet 2023 024 [facility] #42143, [address] [facility], [place], [place], [id number], 4 16:20:07 chlorthalid one 50 mg tablet 2023 024 [facility] #86602, [address] [facility], [place], [place], [id number], 4 17:59:38 phentermine 15 mg capsule 2023 024 [facility], [address] [place], [address], 4 10:36:55 Xulane 150 mcg-35 mcg/24 hr transdermal patch 2023 024 [facility], [address] [place], [address], 4 16:41:07 Patient TargetsNo targets recorded. Patient Instructions Encounter Date Encounter Id Patient Instructions Last Modified By Organization Details Last Modified Time 11/25/2023 [id number] A healthy lifestyle: care instructions [id number] Not available 11/25/2023 15:11:58 Reason for Referral None Reported. Results Created Date Observation Date Name Description Value Unit Range Abnormal Flag Note LastModifiedBy Organization Detail LastModifiedTime 11/25/19 24 11/26/2023 LIPID PANEL cholesterol, total 205 mg/dL 100-19 9 above high normal Not Available [facility] ([facility]) [address] [place], [address], 11/29/2023 03:35:46 11/25/19 24 11/26/2023 LIPID PANEL triglyceride s 181 mg/dL 0-149 above high normal Not Available [facility] ([facility]) [address] [place], [address], 11/29/2023 03:35:46 11/25/19 24 11/26/2023 LIPID PANEL HDL cholesterol 39 mg/dL >39 below low normal Not Available [facility] ([facility]) [address] [place], [address], 11/29/2023 03:35:46 11/25/19 24 11/26/2023 LIPID PANEL VLDL cholesterol haroon 33 mg/dL 5-40 Not Available [facility] ([facility]) [address] [place], [address], 11/29/2023 03:35:46 11/25/19 24 11/26/2023 LIPID PANEL LDL chol calc ([facility]) 133 mg/dL 0-99 above high normal Not Available [facility] ([facility]) [address] [place], [address], 11/29/2023 03:35:46 11/25/19 24 11/26/2023 COMP. METAB OLIC PANEL (14) glucose 89 mg/dL 70-99 Not Available [facility] ([facility]) [address] [place], [address], 11/29/2023 03:35:46 11/25/19 24 11/26/2023 COMP. METAB OLIC PANEL (14) BUN 13 mg/dL 6-20 Not Available [facility] ([facility]) [address] [place], [address], 11/29/2023 03:35:46 11/25/19 24 11/26/2023 COMP. METAB OLIC PANEL (14) creatinine 0.66 mg/dL 0.57-1 .00 Not Available [facility] ([facility]) [address], [place], [address], 11/29/2023 03:35:46 11/25/19 24 11/26/2023 COMP. METAB OLIC PANEL (14) eGFR 119 mL/mi n/1.7 3 >59 Not Available [facility] ([facility]) [address] [place], [address], 11/29/2023 03:35:46 11/25/19 24 11/26/2023 COMP. METAB OLIC PANEL (14) BUN/creatini ne ratio 20 9- Not Available [facility] ([facility]) [address] [facility], [place], [address], 11/29/2023 03:35:46 11/25/19 24 11/26/2023 COMP. METAB OLIC PANEL (14) sodium 141 mmol/ L 134-14 4 Not Available [facility] ([facility]) [address] [facility], [place], [address], 11/29/2023 03:35:46 11/25/19 24 11/26/2023 COMP. METAB OLIC PANEL (14) potassium 4.6 mmol/ L 3.5-5. 2 Not Available [facility] ([facility]) [address] [place], [address], 11/29/2023 03:35:46 11/25/19 24 11/26/2023 COMP. METAB OLIC PANEL (14) chloride 104 mmol/ L 96-106 Not Available [facility] ([facility]) [address] [place], [address], 11/29/2023 03:35:46 11/25/19 24 11/26/2023 COMP. METAB OLIC PANEL (14) carbon dioxide, total 20 mmol/ L 20-29 Not Available [facility] ([facility]) [address] [facility], [place], [address], 11/29/2023 03:35:46 11/25/19 24 11/26/2023 COMP. METAB OLIC PANEL (14) calcium 9.7 mg/dL 8.7-10 .2 Not Available [facility] ([facility]) [address] [facility], [place], [address], 11/29/2023 03:35:46 11/25/19 24 11/26/2023 COMP. METAB OLIC PANEL (14) protein, total 7.6 g/dL 6.0-8. 5 Not Available [facility] ([facility]) [address] [facility], [place], [address], 11/29/2023 03:35:46 11/25/19 24 11/26/2023 COMP. METAB OLIC PANEL (14) albumin 4.3 g/dL 3.9-4. 9 Not Available [facility] ([facility]) [address] [facility], [place], [address], 11/29/2023 03:35:46 11/25/19 24 11/26/2023 COMP. METAB OLIC PANEL (14) globulin, total 3.3 g/dL 1.5-4. 5 Not Available [facility] ([facility]) [address] [facility], [place], [address], 11/29/2023 03:35:46 11/25/19 24 11/26/2023 COMP. METAB OLIC PANEL (14) bilirubin, total 0.3 mg/dL 0.0-1. 2 Not Available [facility] ([facility]) [address] [facility], [place], [address], 11/29/2023 03:35:46 11/25/19 24 11/26/2023 COMP. METAB OLIC PANEL (14) alkaline phosphatase 75 IU/L 44-121 Not Available [facility] ([facility]) [address] [place], [address], 11/29/2023 03:35:46 11/25/19 24 11/26/2023 COMP. METAB OLIC PANEL (14) AST (SGOT) 35 IU/L 0-40 Not Available [facility] ([facility]) [address] [place], [address], 11/29/2023 03:35:46 11/25/19 24 11/26/2023 COMP. METAB OLIC PANEL (14) ALT (SGPT) 39 IU/L 0-32 above high normal Not Available [facility] ([facility]) [address] [place], [address], 11/29/2023 03:35:46 11/25/19 24 11/26/2023 TSH RFX ON ABNOR MAL TO FREE T4 TSH 1.750 uIU/m L 0.450- 4.500 Not Available [facility] ([facility]) [address] [place], [address], 11/29/2023 03:35:47 11/25/19 24 11/26/2023 HEMOG LOBIN A1C hemoglobin A1C 6.2 % 4.8-5. 6 above high normal Predi abete s: 5.7 - 6.4 Diabe vita: >6.4 Glyce lenin contr ol for adult s with diabe vita: <7.0 Not Available [facility] ([facility]) [address] [place], [address], 11/29/2023 03:35:47 11/25/19 24 11/26/2023 TESTO STERO NE testosterone 32 NG/dL 8-60 Not Available [facility] ([facility]) [address] [place], [address], 11/29/2023 03:35:48 11/25/19 24 11/26/2023 PROLA CTIN prolactin 7.5 NG/mL 4.8-33 .4 Not Available [facility] ([facility]) [address] [facility], [place], [address], 11/29/2023 03:35:49 11/25/19 24 11/26/2023 CBC, PLATE LET, NO DIFFE RENTI AL WBC 8.8 x10e3 /uL 3.4-10 .8 Not Available [facility] ([facility]) [address] [facility], [place], [address], 11/29/2023 03:35:49 11/25/1911/26/2023 CBC, PLATE LET, NO DIFFE RENTI AL RBC 4.78 x10e6 /uL 3.77-5 .28 Not Available [facility] ([facility]) [address] [facility], [place], [address], 11/29/2023 03:35:49 11/25/19 24 11/26/2023 CBC, PLATE LET, NO DIFFE RENTI AL hemoglobin 14.3 g/dL 11.1-1 5.9 Not Available [facility] ([facility]) [address] [facility], [place], [address], 11/29/2023 03:35:49 11/25/19 24 11/26/2023 CBC, PLATE LET, NO DIFFE RENTI AL hematocrit 43.7 % 34.0-4 6.6 Not Available [facility] ([facility]) [address] [facility], [place], [address], 11/29/2023 03:35:49 11/25/1911/26/2023 CBC, PLATE LET, NO DIFFE RENTI AL MCV 91 fL 79-97 Not Available [facility] ([facility]) [address] [facility], [place], [address], 11/29/2023 03:35:49 11/25/19 24 11/26/2023 CBC, PLATE LET, NO DIFFE RENTI AL MCH 29.9 pg 26.6-3 3.0 Not Available [facility] ([facility]) [address] [place], [address], 11/29/2023 03:35:49 11/25/19 24 11/26/2023 CBC, PLATE LET, NO DIFFE RENTI AL MCHC 32.7 g/dL 31.5-3 5.7 Not Available [facility] ([facility]) [address] [place], [address], 11/29/2023 03:35:49 11/25/19 24 11/26/2023 CBC, PLATE LET, NO DIFFE RENTI AL RDW 13.3 % 11.7-1 5.4 Not Available [facility] ([facility]) [address] [facility], [place], [address], 11/29/2023 03:35:49 11/25/19 24 11/26/2023 CBC, PLATE LET, NO DIFFE RENTI AL platelets 331 x10e3 /uL 150-45 0 Not Available [facility] ([facility]) [address] [place], [address], 11/29/2023 03:35:49 11/25/19 24 11/28/2023 17-OH PROGE STERO NE LCMS 17-oh progesterone lcms 14 NG/dL Adult Femal e Folli cular 15 - 70 Lutea l 35 - 290 Not Available [facility] ([facility]) [address] [place], [address], 11/29/2023 03:35:50 12/03/19 24 12/03/2023 pregn jonathan test, urine HCG negati ve Not Available In-Office Order Internal Use Only DO Not Attach Compendium DO Not Attach Compendium, Do Not Delete/merge, [id number] 12/02/2023 17:37:41 02/02/20 24 02/02/2024 pregn jonathan test, urine HCG negati ve Not Available In-Office Order Internal Use Only DO Not Attach Compendium DO Not Attach Compendium, Do Not Delete/merge, [id number] 02/02/2024 16:32:46 03/15/20 24 03/15/2024 XR, foot, 3 or more view No observ ation record ed. [email or web address] [facility] [address], [place], [address], 03/22/2024 13:50:57 Result Notes None recorded. Problems Name Problem SNOMED Code Status Onset Date Resolution Date Notes Provider Name and Address Organization Details Recorded Time Prediabetes 067885078 Active 2023 ABIGAIL TIWARI MD Attn: Briana gibbs,[address] [place], [address], [facility] 4 14:24:35 Polycystic ovary syndrome 961523328 Active 2023 ABIGAIL TIWARI MD Attn: Briana gibbs,[address] [place], [address], [facility] 4 15:14:44 Obesity 800396476 Active 2023 ABIGAIL TIWARI MD Attn: Briana gibbs,[address] [place], [address], [facility] 4 15:17:28 Essential hypertension 19626138 Active 2023 ABIGAIL TIWARI MD Attn: Briana gibbs,[address] [place], [address], [facility] 4 15:17:25 Chronic cough 99361174 Active 2023 ABIGAIL TIWARI MD Attn: Briana gibbs,[address] [place], [address], [facility] 4 16:15:07 Problem Notes None recorded. Procedures Surgical History Date Name Laterality Status Provider Name and Address Organization Details Recorded Time Remove tonsils and adenoids completed [facility] 11/25/2023 14:04:18 cholecystectomy completed Samantha Dahl MA [facility] 11/25/2023 14:04:28 Imaging Results Imaging Date Name Status LastModified by Organiz ation Details LastModified Time 03/15/2024 XR, foot, 3 or more view completed [email or web address] [facility] [address], [place], [address], 03/22/2024 13:50:57 Procedure Notes None recorded. Medical Equipment None Reported. Allergies Allergen ID Allergen Name Allergen Category Reaction Reaction Severity Criticality Documentation Date Start Date Code Code System Note Provider Name and Address Organization Details Recorded Time [id number] Bactrim medicatio n rash Not available Not available 11/25/2023 [id number] RxNorm Not Available Not Available Not Available Medications Name Sig Start Date Stop Date Status Note LastModified by Organization Details LastModified Time ondansetron HCl 4 mg tablet 11/24 completed Not Available Not Available Not Available phentermine 15 mg capsule TAKE 1 CAPSULE BY MOUTH EVERY DAY BEFORE MEALS FOR 30 DAYS active Not Available Not Available No t Available chlorthalid one 25 mg tablet TAKE 1 TABLET BY MOUTH EVERY DAY FOR HIGH BLOOD PRESSURE 01/19 completed Not Available Not Available Not Available chlorthalid one 50 mg tablet TAKE 1 TABLET BY MOUTH ONCE DAILY active Not Available Not Available No t Available amoxicillin 875 mg tablet 11/24 completed Not Available Not Available Not Available famotidine 20 mg tablet TAKE 1 TABLET BY MOUTH EVERY DAY AT BEDTIME active Not Available Not Available No t Available irbesartan 150 mg tablet TAKE 1 TABLET BY MOUTH ONCE DAILY FOR HIGH BLOOD PRESSURE active Not Available Not Available No t Available norethindro ne (contracept madhu) 0.35 mg tablet TAKE 1 TABLET BY MOUTH EVERY DAY 02/01 completed Not Available Not Available Not Available fluticasone propionate 50 mcg/actuati on nasal spray,suspe nsion 11/24 completed Not Available Not Available Not Available metformin ER 500 mg tablet,exte nded release 24 hr TAKE 1 TABLET BY MOUTH ONCE DAILY FOR PREDIABET ES active Not Available Not Available No t Available Zafemy 150 mcg-35 mcg/24 hr transdermal patch APPLY 1 PATCH TOPICALLY ONCE A WEEK FOR 21 DAYS active Not Available Not Available No t Available Vitals Date Recorded Body weight Provider Name an d Address Organization Details Last Updated DateTime 11/25/2023 799540.03 sai Samantha Dahl MA [facility] 11/15 13:56:45 Date Recorded Body mass index (BMI) Body height Provider Name and Address Organization Details Last Updated DateTime 11/25/2023 64 kg/m2 157.48 cm Samantha Dahl MA [facility] 11/25/2023 13:56:53 Date Recorded Oxygen saturation Oxygen saturation in Arterial blood by Pulse oximetry Provider Name and Address Organization Details Last Updated DateTime 11/25/2023 98 % 98 % Samantha Dahl MA [facility] 11/25/2023 14:09:30 Date Recorded Heart rate Provider Name an d Address Organization Details Last Updated DateTime 11/25/2023 91 /min Saamntha Dahl MA [facility] 11/24 14:09:39 Date Recorded Body temperature Provider Name a nd Address Organization Details Last Updated DateTime 11/25/2023 98.5 [degF] Samantha Dahl MA [facility] 11/25/2023 14:10:31 Date Recorded Body height Provider Name an d Address Organization Details Last Updated DateTime 12/02/2023 157.48 cm Samantha Dahl MA [facility] 12/01 16:53:58 Date Recorded Body mass index (BMI) Body weight Provider Name and Address Organization Details Last Updated DateTime 12/02/2023 62.8 kg/m2 579269.88 sai Dahl MA [facility] 12/02/2023 16:59:19 Date Recorded Oxygen saturation Oxygen saturation in Arterial blood by Pulse oximetry Provider Name and Address Organization Details Last Updated DateTime 12/02/2023 98 % 98 % Samantha Dahl MA [facility] 12/02/2023 16:59:22 Date Recorded Heart rate Provider Name an d Address Organization Details Last Updated DateTime 12/02/2023 106 /min Samantha Dahl MA [facility] 12/01 16:59:28 Date Recorded Body temperature Provider Name a nd Address Organization Details Last Updated DateTime 12/02/2023 98.7 [degF] Samantha Dahl MA [facility] 12/02/2023 16:59:35 Date Recorded Body height Provider Name an d Address Organization Details Last Updated DateTime 01/20/2024 157.48 cm Tessa Valles MA [facility] 01/19 14:19:29 Date Recorded Body mass index (BMI) Body weight Provider Name and Address Organization Details Last Updated DateTime 01/20/2024 61.9 kg/m2 254141.32 g Tessa Valles MA [facility] 01/20/2024 14:22:07 Date Recorded Oxygen saturation Oxygen saturation in Arterial blood by Pulse oximetry Provider Name and Address Organization Details Last Updated DateTime 01/20/2024 99 % 99 % Tessa Valles MA [facility] 01/20/2024 14:22:30 Date Recorded Heart rate Provider Name an d Address Organization Details Last Updated DateTime 01/20/2024 97 /min Tessa Valles MA [facility] 01/19 14:23:05 Date Recorded Body temperature Provider Name a nd Address Organization Details Last Updated DateTime 01/20/2024 98.3 [degF] Tessa Valles MA [facility] 01/20/2024 14:23:10 Date Recorded Body height Provider Name an d Address Organization Details Last Updated DateTime 02/02/2024 157.48 cm Tessa Valles MA [facility] 02/01 16:15:14 Date Recorded Body mass index (BMI) Body weight Provider Name and Address Organization Details Last Updated DateTime 02/02/2024 61.5 kg/m2 325078.09 g Tessa Valles MA [facility] 02/02/2024 16:18:11 Date Recorded Oxygen saturation Oxygen saturation in Arterial blood by Pulse oximetry Provider Name and Address Organization Details Last Updated DateTime 02/02/2024 98 % 98 % Tessa Valles MA [facility] 02/02/2024 16:18:28 Date Recorded Heart rate Provider Name an d Address Organization Details Last Updated DateTime 02/02/2024 88 /min Tessa Valles MA [facility] 02/01 16:18:54 Date Recorded Body temperature Provider Name a nd Address Organization Details Last Updated DateTime 02/02/2024 98.5 [degF] Tessa Valles MA [facility] 02/02/2024 16:19:00 Date Recorded Systolic blood pressure Diastolic blood pressure Provider Name and Address Organization Details Last Updated DateTime 11/25/2023 170 mm[Hg] 133 mm[Hg] Samantha Dahl MA [facility] 11/25/2023 14:09:20 Date Recorded Systolic blood pressure Diastolic blood pressure Provider Name and Address Organization Details Last Updated DateTime 11/25/2023 161 mm[Hg] 115 mm[Hg] Samantha Dahl MA [facility] 11/25/2023 14:11:38 Date Recorded Systolic blood pressure Diastolic blood pressure Provider Name and Address Organization Details Last Updated DateTime 12/02/2023 168 mm[Hg] 105 mm[Hg] Samantha Dahl MA [facility] 12/02/2023 16:59:08 Date Recorded Systolic blood pressure Diastolic blood pressure Provider Name and Address Organization Details Last Updated DateTime 12/02/2023 165 mm[Hg] 110 mm[Hg] Samantha Dahl MA [facility] 12/02/2023 17:00:25 Date Recorded Systolic blood pressure Diastolic blood pressure Provider Name and Address Organization Details Last Updated DateTime 01/20/2024 165 mm[Hg] 102 mm[Hg] Tessa Valles MA [facility] 01/20/2024 14:22:11 Date Recorded Systolic blood pressure Diastolic blood pressure Provider Name and Address Organization Details Last Updated DateTime 02/02/2024 138 mm[Hg] 89 mm[Hg] Tessa Valles MA [facility] 02/02/2024 16:18:22 Social History Question Answer Notes LastModified by Organizat ion Details LastModified Time Tobacco Smoking Status Never Smoker Samantha Dahl MA null, [facility] 11/25/2023 14:03:41 What Is Your Level Of Alcohol Consumption? None Information not available 11/25/2023 Are You Blind Or Do You Have Difficulty Seeing? Yes 01/20/24 Wears Glasses Information not available 01/20/2024 What Is Your Level Of Caffeine Consumption? None Information not available 11/25/2023 In The 14 Days Before Symptom Onset, Have You Had Close Contact With A Laboratory-confir med COVID-19 While That Case Was Ill? No Information not available 01/20/2024 In The 14 Days Before Symptom Onset, Have You Had Close Contact With A Person Who Is Under Investigation For COVID-19 While That Person Was Ill? No Information not available 01/20/2024 Have You Been To An Area Known To Be High Risk For COVID-19? No Information not available 01/20/2024 Are You Currently Employed? Yes Information not available 01/20/2024 Are You Deaf Or Do You Have Serious Difficulty Hearing? No Information not available 01/20/2024 What Type Of Diet Are You Following? 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 01/20/2024 Information not available 01/20/2024 How Many Children Do You Have? 0 Information not available 01/20/2024 Do You Use Protection During Sex? No Information not available 01/20/2024 What Is Your Relationship Status? Single Information not available 01/20/2024 Do You Use Your Seat Belt Or Car Seat Routinely? Yes Information not available 01/20/2024 Are You Sexually Active? Yes Information not available 01/20/2024 Do You Feel Stressed (tense, Restless, Nervous, Or Anxious, Or Unable To Sleep At Night)? [id number] Information not available 01/20/2024 Do You Use Any Illicit Or Recreational Drugs? Yes MJ Information not available 11/25/2023 Has Tobacco Cessation Counseling Been Provided? No Information not available 11/25/2023 Do You Or Have You Ever Used Any Other Forms Of Tobacco Or Nicotine? No Information not available 01/20/2024 Sex: Female Functional Status Question Answer Note LastModified by Organizat ion Details LastModified Time Are you able to care for yourself? Yes Information not available 01/20/2024 What is your exercise level? Occasional Information not available 01/20/2024 Mental Status None recorded. Family History Relationship Description Onset Age of this Age Resolved Age Notes LastModified by Organization Details LastModified Time Maternal Grandmother Diabetes mellitus [email or web address] Not available 2023 14:02:04 Maternal Grandmother Essential hypertension [email or web address] Not available 02/2024 14:02:18 Maternal Grandmother Kidney disease [email or web address] Not available 2023 14:02:28 Mother Essential hypertension [email or web address] Not available 02/2024 14:02:18 Medical History Condition Response Coronary Artery Disease N Other N High Blood Pressure N Atrial Fibrillation N Kidney or Bladder Problems N Thyroid Problems N GI Problems N Depression N COPD N Blood Clots N Have you had a mammogram in the last yea r? N Skin Problems N Eating Disorder N Anemia N Heart Attack ([place]) N Anxiety Disorder N Diabetes Y Muscle, Joint, or Bone Problems N Arthritis N Seizures/Epilepsy N Have you had a colonoscopy in the last 1 0 years? N Acid Reflux (GERD) N Cancer N Stroke N Asthma N Allergies N Have you had a PSA blood test in the las t year? N ADHD N Substance Abuse N High Cholesterol N Hepatitis N Liver Disease N Schizophrenia N Headaches N Osteoporosis N Heart Failure N Gynecological History Statement/Question Response Menses Monthly N Date of Last Pap Smear Current Control Method None Date of LMP LMP Unknown Obstetrics History GPAL:G 0 P 0 0 0 0 Immunizations Vaccine Type Date Status Note Provider Nam e and Address Organization Details Recorded Time Hib, unspecified formulation 2 completed ABIGAIL TIWARI MD Attn: Accounting,[address] [place], [address], [facility] 11/25/2023 14:22:06 Hib, unspecified formulation 4 completed ABIGAIL TIWARI MD Attn: Accounting,[address] [place], [address], [facility] 11/25/2023 14:22:06 Hib, unspecified formulation 2 jermain TIWARI MD Attn: Accounting,[address] [place], [address], [place] [facility] 11/25/2023 14:22:06 Hib, unspecified formulation 2 completed ABIGAIL TIWARI MD Attn: Accounting,[address] [facility], [place], [place], [address] [place] [address], [place] [facility] 11/25/2023 14:22:07 Influenza, MDCK, quadrivalent, PF 1 completed ABIGAIL TIWARI MD Attn: Accounting,[address] [facility], [place], [address] [place] [address], [place] [facility] 11/25/2023 14:22:07 MMR 4 completed ABIGAIL TIWARI MD Attn: Accounting,[address] [facility], [place], [address] [place] [address], [place] [facility] 11/25/2023 14:22:07 MMR 5 completed ABIGAIL TIWARI MD Attn: Accounting,[address] [facility], [place], [address] [place] [address], [place] [facility] 11/25/2023 14:22:07 COVID-19, mRNA, LNP-S, PF, 100 mcg/0.5mL dose or 50 mcg/0.25mL dose 1 completed ABIGAIL TIWARI MD Attn: Accounting,[address] [facility], [place], [address] [place] [address], [place] [facility] 11/25/2023 14:22:07 COVID-19, mRNA, LNP-S, PF, 100 mcg/0.5mL dose or 50 mcg/0.25mL dose 1 completed ABIGAIL TIWARI MD Attn: Accounting,[address] [facility], [place], [address] [place] [address], [place] [facility] 11/25/2023 14:22:07 COVID-19, mRNA, LNP-S, bivalent, PF, 30 mcg/0.3 mL dose 2 completed ABIGAIL TIWARI MD Attn: Accounting,[address] [facility], [place], [address] [place] [address], [place] [facility] 11/25/2023 14:22:07 pneumococcal polysaccharide PPV23 1 completed ABIGAIL TIWARI MD Attn: Accounting,[address], [place], [address] [place] [address], [place] [facility] 11/25/2023 14:22:07 varicella 2 completed ABIGAIL TIWARI MD Attn: Accounting,[address], [place], [address] [place] [address], [facility] 11/25/2023 14:22:07 DTP 2 completed ABIGAIL TIWARI MD Attn: Accounting,[address], [place], [address] [place] [address], [facility] 11/25/2023 14:22:07 DTP 4 completed ABIGAIL TIWARI MD Attn: Accounting,[address] [facility], [place], [address] [place] [address], [facility] 11/25/2023 14:22:07 DTP 2 completed ABIGAIL TIWARI MD Attn: Accounting,[address] [facility], [place], [address] [place] [address], [facility] 11/25/2023 14:22:07 DTP 2 completed ABIGAIL TIWARI MD Attn: Accounting,[address] [facility], [place], [address] [place] [address], [facility] 11/25/2023 14:22:07 DTP 7 completed ABIGAIL TIWARI MD Attn: Accounting,[address] [facility], [place], [address] [place] [address], [place] [facility] 11/25/2023 14:22:07 OPV 2 completed ABIGAIL TIWARI MD Attn: Accounting,[address] [facility], [place], [address] [place] [address], [place] [facility] 11/25/2023 14:22:07 OPV 4 completed ABIGAIL TIWARI MD Attn: Accounting,[address] [facility], [place], [address] [place] [address], [facility] 11/25/2023 14:22:07 OPV 2 completed ABIGAIL TIWARI MD Attn: Accounting,[address] [facility], [place], [address] [place] [address], [facility] 11/25/2023 14:22:07 OPV 7 completed ABIGAIL TIWARI MD Attn: Accounting,[address] [facility], [place], [address] [place] [address], [facility] 11/25/2023 14:22:07 Td (adult), 2 Lf tetanus toxoid, preservative free, adsorbed 6 completed ABIGAIL TIWARI MD Attn: Accounting,[address] [facility], [place], [address] [place] [address], [facility] 11/25/2023 14:22:07 Hep B, adolescent or pediatric 7 completed ABIGAIL TIWARI MD Attn: Accounting,[address] [facility], [place], [address] [place] [address], [facility] 11/25/2023 14:22:07 Hep B, adolescent or pediatric 7 completed ABIGAIL TIWARI MD Attn: Accounting,[address] [facility], [place], [address] [place] [address], [facility] 11/25/2023 14:22:07 Hep B, adolescent or pediatric 7 completed ABIGAIL TIWARI MD Attn: Accounting,[address] [facility], [place], [address] [place] [address], [facility] 11/25/2023 14:22:07 Hep A, ped/adol, 2 dose 6 completed ABIGAIL TIWARI MD Attn: Accounting,[address] [facility], [place], [address] [place] [address], [facility] 11/25/2023 14:22:07 meningococcal C conjugate 6 completed ABIGAIL TIWARI MD Attn: Accounting,[address] [facility], [place], [address] [place] [address], [facility] 11/25/2023 14:22:07 Influenza, split virus, quadrivalent, PF 2 completed ABIGAIL TIWARI MD Attn: Accounting,[address] [place], [address], [facility] 11/25/2023 14:22:07 Past Encounters Encounter ID Performer Location Encounter Start Date Encounter Closed Date Diagnosis/Indication Diagnosis SNOMED-CT Code Diagnosis ICD10 Code Diagnosis Note [id number] MD Kevin PADRON (SAMPLE COORDINATOR) [address] [place] [address] 11/25/2023 13:49:41 12/16/2023 11:54:37 Adult health examination 294422487 Z00.01 - Reviewed risks for cardiovasc ular disease, infection, and cancer; ordered screening tests as appropriat e Obesity 565879800 E66.09 Z68.44 - Discussed healthy behaviors, including eating a nutritious diet and incorporat ing regular physical activity into day- Provided handout on healthy lifestyle- f/u ALT, lipid panel, A1c -- at increased risk of metabolic dysfunctio n-associat ed steatotic liver disease (MASLD), high cholestero l, and diabetes for BMI >30 Essential hypertension 01841692 I10 - No chest pain, shortness of breath, vision changes, headaches- Will start 2 antihypert ensives: chlorthali done 25 mg daily, irbesartan 150 mg daily- RTC in 2 weeks for BP check Diabetes m ellitus screening 490195094 Z13.1 R73.03 - f/u A1c Irregular periods 634382 07 N92.6 - Will obtain labs to evaluate for PCOS and rule out other causes of irregular periods- Meets criteria for PCOS with amenorrhea and hirsutism Prediabetes 326221548 R7 3.03 - Refilled home metformin ER 500 mg daily [id number] MD Kevin PADRON (SAMPLE COORDINATOR) [address] [place] [address] 12/02/2023 16:39:40 12/16/2023 14:49:49 Chronic low back pain 998202505 M54.50 - Advised OTC analgesics and home exercises- Consider referral to PT for further evaluation and treatment if no improvemen t with home exercises Essential hypertension 32969789 I10 - Will increase chlorthali done to 50 mg daily- Continue irbesartan 150 mg daily Polycystic ovary syndrome 009914105 E28.2 - Meets Rotter[place] criteria with hirsutism and amenorrhea - Endometria l protection : norethindr one 0.35 mg daily- Discussed increased risk for metabolic syndrome. Currently has HTN, prediabete s. Will monitor with labs every 6-12 months. Chronic cough 58723396 R 05.3 - DDx: GERD vs post-nasal drip. Not on medication s to cause this side effect.- Will treat empiricall y for GERD with famotidine 20 mg qHS [id number] MD Kevin PADRON (SAMPLE COORDINATOR) [address] [place] [address] 01/20/2024 14:14:27 02/02/2024 09:18:15 Pain in left lower limb 420475488 M79.605 - Concern for DVT in setting of unilateral leg pain and swelling- Wells score for DVT 1 for swelling. Will start workup with STAT D-dimer. If positive, will have patient go to ED immediatel y for imaging. Essential hypertension 00109933 I10 - Not at goal on chlorthali done 50 mg daily and irbesartan 150 mg daily- Will complete DVT rule-out workup before making medication adjustment s Polycystic ovary syndrome 223784854 E28.2 - Meets Rot[place] criteria with hirsutism and amenorrhea - Endometria l protection : was prescribed norethindr one 0.35 mg daily but not taking regularly; will discuss patch option pending DVT rule-out workup- Discussed increased risk for metabolic syndrome. Currently has HTN, prediabete s. Will monitor with labs every 6-12 months. Obesity 562425651 E66.09 Z68.44 - Interested in weight-los s medication s. Insurance covers phentermin e, phendimetr azine, diethylpro pion.- Will discuss further at future visits, as patient is limited in options with uncontroll ed HTN [id number] MD Kevin PADRON (SAMPLE COORDINATOR) [address] [place] [address] 02/02/2024 15:54:46 02/15/2024 12:51:45 Essential hypertension 08381589 I10 - At goal on chlorthali done 50 mg daily and irbesartan 150 mg daily- RTC in 1 month for BP check while on estrogen-c ontaining control and phentermin e Polycystic ovary syndrome 443439218 E28.2 - Meets [place] criteria with hirsutism and amenorrhea - Endometria l protection : control patch- Discussed increased risk for metabolic syndrome. Currently has HTN, prediabete s. Will monitor with labs every 6-12 months. Obesity 771043238 E66.09 Z68.44 - Interested in weight-los s medication s. Insurance covers phentermin e, phendimetr azine, diethylpro pion- 02/02/24: Starting weight 336 lbs. BP at goal on medication s so okay to start phentermin e and will closely monitor BP while on medication . Health Concerns Section Related Observation LastModified by Organization Detai ls LastModified Time None Recorded Concern Status LastModified by Organization Details LastModified Time None Recorded Advance Directives Directive None Recorded Payers Encounter Date Sequence Insurance Name Policy Number Policy Eli Covered Member ID Eli Member ID Guarantor Name 11/25/2023 1 [facility] OPEN ACCESS III (PPO) [facility] [id number] Thi Henderson 12/02/2023 1 [facility] - OPEN ACCESS III [facility] [id number] Thi Henderson 01/20/2024 1 [facility] - OPEN ACCESS III [facility]PPO[facility] [id number] Thijoycelyn Henderson 02/02/2024 1 [facility] [employer] - OPEN ACCESS III (PPO) [facility] Thijoycelyn Henderson [id number] Thi Henderson Notes Date Note Type Note Provider Name and Address Organization Details Recorded Time 11/25/2023 text/html Knot in Stomach- There is knot in stomach on the RLQ - doesnt irritate or bother, just hard- Had this knot since the past few months Back Pain-Left lower side back pain started a month+ ago. Pain usually happens when going walking or when doing dishes. Goes away when sitting down or lying down. Feels like a straining pain Clearing of Throat-Years of this problem of mucus all over the throat . Only in throat, not in nose or ears.- Feels like has to clear all throughout the day. Nothing makes it better, maybe some water. Milk maybe makes it worse.- No association with meals Pain in Left Leg-Pain in left lower leg (appears to be swollen). No numbness and tingling in leg, but does have numbness in arms.- Noticed discoloration for the past few months. Difficult to lift her left leg as high as the right. No other pain in that area until deep palpation sharp pain felt. Vaginal Odor-No burning when peeing, no rash observed by patient. No changes in urinary frequency or urgency.- Patient reports smelling a bad odor when peeing. Has noticed this for years due to being more obese. Wants to know if there are any medications that can help with the odor. Hypertension:-Have had high BP for a while, for at least a year. Has not gone to the doctor since.- Is not on any medications.- No blurry vision, no headaches, little bit of swelling in fingers, hands and feet. No insurance, questions:- Was on Metformin but not on any medications now due to insurance. Also on Amlodipine, and another BP + water pill with C (Chlorthalidone?) and control.- Is unopposed to but has not had her period in over a year so would like to regulate that first. HPI documented by Ari Vegas, S-III ABIGAIL TIWARI MD Attn: Accounting[address] [place], [address], [facility] 12/14/2023 16:12:51 12/02/2023 text/html Chronic back rajwinder n- Makes it difficult to stand and walk, e.g. standing to do dishes- Does not do specific back exercises or pain medicines. Massaging and heating pads/hot baths help the low back pain.- Describes pain as a muscle cramp, left side worse than the right- Middle of the back hurts only when someone presses on it ABIGAIL TIWARI MD Attn: Accounting[address] [place], [address], [facility] 12/14/2023 16:17:58 01/20/2024 text/html Leg cramping- Le ft leg cramping for past 2-3 days. States it feels like a Charley horse from distal aspect of thigh to proximal lower leg.- No new activity. No injury.- Has noticed slightly increased swelling to left leg compared to right.- No known FHx of DVT/PE control- Has had difficulty remembering to take pills- Interested in switching to the patch Weight management- States her insurance covers the first 3 medicines on the insurance cheat sheet given at her last visit (i.e. phentermine, phendimetrazine, diethylpropion) ABIGAIL TIWARI MD Attn: Accounting[address] [place], [address], [facility] 01/20/2024 17:26:58 02/02/2024 text/html Weight loss- Interested in weight loss medications control- Has had a hard time remembering to take the control pill on time- Would like to try the control patch Combined hormonal contraceptive questionnaire- History of migraines with or without aura? {{Yes - with aura Yes - without aura No*}}- Personal or family history of DVT/PE or blood clotting disorder? {{Yes No*}}- Smoker age 35+? {{Yes No*}}- On antiepileptics or rifampin {{Yes No*}} ABIGAIL TIWARI MD Attn: Accounting[address] [place], [address], [facility] 02/02/2024 16:58:49 OBGyn Episode No OBEpisode recorded.
--- OUTSIDE RECORDS SUMMARY | 2024-06-15 13:27 | XMS_ITS | Referral Summary ---
Author Organization [facility] [address] [place] [address] Care Team Providers Care Director Of Quality Control Name Role Phone Kely Torres MD Primary Care Provider [phone] Allergies Active Allergy Reactions Criticality Noted Date [...] 07/09/2021 Assessment & Plan (07/09/2021 1:13 PM CUSTOMER ACCOUNT ADMINISTRATOR): A1C 5.8. - Continue Metformin 500mg daily - Diet and Exercise - Repeat 3-6 months Essential hypertension 06/26/2021 Assessment & Plan (07/17/2021 3:28 PM CUSTOMER ACCOUNT ADMINISTRATOR): Improved. Continue current medications. Refills given. F/u 3 months Assessment & Plan (07/09/2021 12:56 PM CUSTOMER ACCOUNT ADMINISTRATOR): Ongoing - Increase amlodipine to 10 mg daily. Start chlorthalidone 25 mg daily. Risks/benefits and alternatives discussed. - recheck potassium level in 1 week -continue low-salt diet/DASH diet - continue to work on weight loss - repeat blood pressure check in 1 Assessment & Plan (06/26/2021 2:14 PM CUSTOMER ACCOUNT ADMINISTRATOR): New diagnosis. Start Amlodipine 5 mg daily. Risks/benefits and alternatives discussed.Home BP monitoring x2 week. Log given DASH and low carb diet - handout given F/u 2 weeks Morbid obesity with BMI of 50.0-59.9, adult 01/2022 Assessment & Plan (07/17/2021 3:28 PM CUSTOMER ACCOUNT ADMINISTRATOR): Continue to diet and exercise Assessment & Plan (07/09/2021 12:58 PM CUSTOMER ACCOUNT ADMINISTRATOR): Reviewed lab results with patient today. No concerning results Continue to work on diet and exercise Encouraged evaluation with bariatric surgery to discuss treatment options Assessment & Plan (06/26/2021 2:15 PM CUSTOMER ACCOUNT ADMINISTRATOR): BMI 57 Dietary and exercise recommendations given [...] PPV23 03/22/2021 Td, adsorbed 12/29/2005 Varicella 12/20/2001 Social History Tobacco Use Types Packs/Day Years [...] on file Legal Sex Female 7:41 AM CUSTOMER ACCOUNT ADMINISTRATOR Gender Identity Female 10/12/2021 12:47 PM CDT Sexual Orientation Straight 06/21/2021 7: 09 PM CUSTOMER ACCOUNT ADMINISTRATOR Occupation Industry Job Start Date Job End Date Not on file Not on file Not on file Not on file Last Filed Vital Signs Vital Sign Reading Time Taken Comments Blood Pressure 120/80 07/17/2021 1:34 PM CUSTOMER ACCOUNT ADMINISTRATOR Pulse 101 07/17/2021 1:34 PM CUSTOMER ACCOUNT ADMINISTRATOR Temperature 36.3 ??C (97.3 ??F) 07/17/2021 1:34 PM CS T Respiratory Rate 20 07/17/2021 1:34 PM CUSTOMER ACCOUNT ADMINISTRATOR Oxygen Saturation 98% 07/17/2021 1:34 PM CUSTOMER ACCOUNT ADMINISTRATOR Inhaled Oxygen Concentration - - Weight 141.5 kg (312 lb) 07/17/2021 1:34 PM CUSTOMER ACCOUNT ADMINISTRATOR Height 157.5 cm (5' 2 ) 07/09/2021 11:29 AM CUSTOMER ACCOUNT ADMINISTRATOR Body Mass Index 57.07 07/09/2021 11:29 AM CUSTOMER ACCOUNT ADMINISTRATOR Plan of Treatment Not on file Procedures Procedure Name Priority Date/Time Associated Diagnosis Comments PAP AND HIGH RISK HPV, REFLEX TO GENOTYPING Routine 06/06/2021 9:40 AM CUSTOMER ACCOUNT ADMINISTRATOR Encounter for screening for malignant neoplasm of cervix from Last 3 Months or Most Recently Relevant to Health Maintenance Results * Pap and High Risk HPV, reflex to Genotyping (06/06/2021 9:40 AM CUSTOMER ACCOUNT ADMINISTRATOR) Swab (Pap test) 06/06/2021 9 :40 AM CUSTOMER ACCOUNT ADMINISTRATOR 06/06/2021 9:40 AM CUSTOMER ACCOUNT ADMINISTRATOR Narrative PATHOLOGY [facility] ([facility]) - 06/10/2021 3:03 PM CUSTOMER ACCOUNT ADMINISTRATOR [facility] Department of Pathology [address] [place], [place] [id number] Final Report with Addendum Note to Patients: [...] questions and explain the details. Patient Name: ??WALTER HENDERSONRAJWINDER Doran Address: ??[address] [place] [address], ?? [place], [place] [address] Gender: ??F : ??1990 (Age: 31) Service: ??Laboratory Location: ??Lab Hospital #: ??[id number] Patient Type: ?? Ref Lab Taken: ??06/06/2021 Received: ??06/06/2021 Accessioned:: ??06/07/2021 [...] determined by the Surgical Pathology Department at [facility] as part of an ongoing senior quality engineer program and in compliance with federally mandated [...] characteristics determined by the Surgical Pathology Department [facility]. ??It has not been cleared or approved by the U. S. Food and Drug Administration. Carmen Bianchi DO LAB CYTOLOGY ORDERABLES Final Result PATHOLOGY [facility] [address] [place] [address] from Last 3 Months or Most Recently Relevant to Health Maintenance Insurance [employer] [facility] [facility]ICINE [facility] [employer] OPEN ACCESS [employer] OPEN ACCESS Care Teams Director Of Quality Control Relationship Specialty Start Date End Date Kely Torres MD [address] [place] [address] PCP - General Obstetrics and Gynecology 01/20/24
--- NOTE | 2024-06-15 14:06 | ED.URI ---
HPI - URI/Sore Throat General Chief Complaint: Upper Respiratory Infection Stated Complaint: throat Source: patient, RN notes reviewed and old records reviewed Mode of arrival: ambulatory Limitations: no limitations History of Present Illness HPI Narrative: 34 year old female who presents to [facility] care with complaints of sore throat for the past 9 days with nasal congestion and drainage. Patient reports that she was seen at another urgent care and was told just a cold but symptoms have not improved. Patient reports that it hurts to swallow, She states that she has been taking Tylenol and als Mucinex for her symptoms with no improvement. Patient has had tonsillectomy. MD elicited complaint: sore throat, rhinorrhea and nasal congestion Onset (ago): week(s) (9 days) Severity: moderate Able to tolerate fluids by mouth: Yes Treatments prior to arrival: acetaminophen and other (Mucinex) Related Data Home Medications ?Medication ?Instructions ?Recorded ?Confirmed ?Last Taken ?Type amlodipine 10 mg tablet 10 mg PO DAILY 09/03/22 03/15/24 Unknown History chlorthalidone 25 mg tablet 25 mg PO DAILY 09/03/22 03/15/24 Unknown History irbesartan 150 mg tablet 150 mg PO DAILY 03/15/24 03/15/24 Unknown History metformin 500 mg tablet,extended 500 mg PO DAILY 03/15/24 03/15/24 Unknown History release 24 hr norelgestromin 150 mcg-e.estradiol See Rx Instructions .Route .COMPLEX 03/15/24 03/15/24 Unknown History 35 mcg/24 hr weekly transderm patch (Zafemy) phentermine 15 mg capsule 15 mg PO DAILY 03/15/24 06/15/24 Unknown History Allergies Allergy/AdvReac Type Severity Reaction Status Date / Time sulfamethoxazole Allergy Intermediate rash Verified 09/03/22 19:08 trimethoprim Allergy Intermediate rash Verified 09/03/22 19:08 Review of Systems Review of Systems: CONSTITUTIONAL: Reports malaise,no chills, sweats, or fever. EYES: Denies visual changes, redness, or discharge. ENT: Reports rhinorrhea, congestion, sinus pain, no otalgia and positive for sore throat. CARDIOVASCULAR: Denies chest pain, palpitations, or edema. RESPIRATORY: Reports occasional dry cough.? Denies dyspnea. GASTROINTESTINAL: Denies abdominal pain, nausea, vomiting, diarrhea SKIN: Denies rash or itching. MUSCULOSKELETAL: Denies myalgia. NEUROLOGIC: Denies headache. All systems reviewed & are unremarkable except as noted in HPI and below PMFSH Past Medical History Medical History Diabetes Hypertension Surgical History Surgical History Hx of cholecystectomy History of tonsillectomy Social History Social History Smoking status: Never smoker Alcohol intake: current Alcohol use details: rare social Substance use type: does not use Gender identity (if verbalized by the patient): Female Comments At time of signature, agree with nursing past medical, surgical, social and family history. There is no relevant family history pertinent to the presenting complaint Exam Narrative: GENERAL: Well-appearing, well-nourished, morbidly obese and in no acute distress. HEAD: Normocephalic EYES: PERRLA, conjunctivae clear ENT: Nares clear, turbinates edematous and erythematous, clear discharge, sinus pressure. Mucous membranes moist. TM pearly steiner with dull light reflex bilaterally; no tragal tenderness. Oropharynx erythematous without lesions. Tonsils not present and throat without exudate, no drooling, no hoarseness, no trismus, uvula midline.post nasal drainage NECK: Supple. No lymphadenopathy CHEST: Clear to auscultation, breath sounds equal. No wheezing, rhonchi, rales, or stridor. No respiratory distress, speaks in full sentences. SAO2 100% on room air HEART: Regular rate and rhythm. No murmur heard. SKIN: Warm, dry, no rash. NEURO: Alert and oriented x3. PSYCH: Normal mood and affect Course Course Emergency Course: Patient is aware of diagnosis, understands and agrees to treatment plan.? Anticipatory guidance given.? Patient agrees to follow-up as directed and is aware of reasons to seek care at the emergency department. Portions of this record may have been created with voice recognition software Level of Care: Express Care Visit Vital Signs Vital signs: Vital Signs Temperature 36.9 C 06/15/24 12:41 Pulse Rate 87 06/15/24 12:41 Respiratory Rate 16 06/15/24 12:41 Blood Pressure 156/97 H 06/15/24 12:41 Pulse Oximetry 100 06/15/24 12:41 Oxygen Delivery Room Air 06/15/24 12:41 Temperature 36.9 C 06/15/24 12:41 Pulse Rate 87 06/15/24 12:41 Respiratory Rate 16 06/15/24 12:41 Blood Pressure 156/97 H 06/15/24 12:41 Pulse Oximetry 100 06/15/24 12:41 Oxygen Delivery Room Air 06/15/24 12:41 Reviewed MDM - URI/Sore Throat MDM Narrative Medical decision making narrative: Differential diagnosis considered: [place] virus, strep pharyngitis, allergic rhinitis, upper respiratory tract infection, sinusitis, rhinosinusitis, nasopharyngitis. viral pharyngitis, otitis media, otitis externa, pneumonia, bronchitis, viral cough syndrome, viral syndrome, and influenza.? Exam findings show no acute concerns or changes; patient is non-toxic appearing and is in no distress.? Patient is appropriate for outpatient treatment and follow-up. Differential Diagnosis Differential diagnosis: Likely upper respiratory infection, sinusitis, viral infection and pharyngitis Lab Data Attestation: I reviewed the patient's lab results. Lab results narrative: strep screen negative, culture sent Labs: Lab Results 06/15/24 Range/Units 14:12 POC Grp A Strep Screen Negative (Negative) Critical Care Time Critical Care Time Critical Care Time: No Discharge Plan Discharge Clinical Impression: Acute pharyngitis Qualifiers: Pharyngitis/tonsillitis etiology: unspecified etiology Qualified Code(s): J02.9 - Acute pharyngitis, unspecified Patient Disposition: Home, Self-Care Condition: Stable Instructions: Antibiotic Form, Pharyngitis (ED) Additional Instructions: Increase fluids especially juices and water Lebw-pyx-[id number] cough and cold medicine of your choice for your symptoms Zyrtec Claritin or Jackie daily Tylenol or ibuprofen for any fever pain heat to the face 20-30 minutes 4-6 times a day for pain Salt water gargles, throat lozenges or throat sprays as desired Antibiotic as directed--finished the medication If your symptoms persist, change or worsen significantly before you can contact your personal physician then please, without delay, go to the emergency department for further evaluation. Follow-up with PCP in 7-10 days or sooner if needed Follow up with PCP soon in regards to your blood pressure which is elevated above threshold for referral. Blood pressure above 120/80 may indicate pre-hypertension. 156/97 Patient Language: Libyan Prescriptions: New amoxicillin 875 mg tablet 875 mg PO Q12H Qty: 14 0RF No Action chlorthalidone 25 mg tablet 25 mg PO DAILY amlodipine 10 mg tablet 10 mg PO DAILY phentermine 15 mg capsule 15 mg PO DAILY irbesartan 150 mg tablet 150 mg PO DAILY metformin 500 mg tablet extended release 24 hr 500 mg PO DAILY norelgestromin-ethin.estradiol [Zafemy] 150-35 mcg/24 hr patch weekly See Rx Instructions .ROUTE .COMPLEX Rx Instructions: PRESCRIBED Follow-up/Referrals: Brian,Kely Casey MD [Primary Care Provider] - Time of Disposition: 14:22 Quality Layla Coma Scale Eyes: Open Verbal: Oriented and Alert Motor: Follows Commands Layla Coma Total Score: 15
[2024-06-15 14:14] LABS: EDSTREPNEGPOS1 Negative (Negative)
== END 2024-06-15 14:32 | disposition home or self-care (01) ==
PROVIDERS: Emergency Provider Registered Nurse; PCP Family Medicine
DX: J02.9 Acute pharyngitis, unspecified (principal); E11.9 Type 2 diabetes mellitus without complications; Z79.84 Long term (current) use of oral hypoglycemic drugs; I10 Essential (primary) hypertension
CPT/HCPCS: 87081; 87880; 99213; G0463

== ENCOUNTER 2025-01-20 09:44 | Emergency (ER) | payer MEDICAID, SELFPAY ==
--- OUTSIDE RECORDS SUMMARY | 2025-01-20 09:52 | XMS_ITS | Clinical Summary ---
Author Organization [facility] [address] [place] [address] Care Team Providers Care Slurry Control Tender Name Role Phone Kely Torres MD Primary Care Provider [phone] Allergies Active Allergy Reactions Criticality Noted Date Comments Sulfamethoxazole-Trimethoprim Rash Medium 2017 Sulfa (Sulfonamide Antibiotics) Rash Medium 02/15 Medications metFORMIN XR (GLUCOPHAGE XR) 500 mg 24 hr tablet Take 1 tablet (500 mg total) by mouth daily with breakfast 30 tablet 2 Active amLODIPine (NORVASC) 10 mg tablet TAKE 1 TABLET BY MOUTH EVERY DAY 14 tablet 2 Active chlorthalidone 25 mg tablet TAKE 1 TABLET (25 MG TOTAL) BY MOUTH DAILY. 14 tablet 2 Active Active Problems Problem Noted Date Diagnosed Date Prediabetes 07/09/2021 Assessment & Plan (07/09/2021 1:13 PM TELEMARKETING REPRESENTATIVE): A1C 5.8. - Continue Metformin 500mg daily - Diet and Exercise - Repeat 3-6 months Essential hypertension 06/26/2021 Assessment & Plan (07/17/2021 3:28 PM TELEMARKETING REPRESENTATIVE): Improved. Continue current medications. Refills given. F/u 3 months Assessment & Plan (07/09/2021 12:56 PM TELEMARKETING REPRESENTATIVE): Ongoing - Increase amlodipine to 10 mg daily. Start chlorthalidone 25 mg daily. Risks/benefits and alternatives discussed. - recheck potassium level in 1 week -continue low-salt diet/DASH diet - continue to work on weight loss - repeat blood pressure check in 1 Assessment & Plan (06/26/2021 2:14 PM TELEMARKETING REPRESENTATIVE): New diagnosis. Start Amlodipine 5 mg daily. Risks/benefits and alternatives discussed.Home BP monitoring x2 week. Log given DASH and low carb diet - handout given F/u 2 weeks BMI 60.0-69.9, adult 06/26/2021 Assessment & Plan (07/17/2021 3:28 PM TELEMARKETING REPRESENTATIVE): Continue to diet and exercise Assessment & Plan (07/09/2021 12:58 PM TELEMARKETING REPRESENTATIVE): Reviewed lab results with patient today. No concerning results Continue to work on diet and exercise Encouraged evaluation with bariatric surgery to discuss treatment options Assessment & Plan (06/26/2021 2:15 PM TELEMARKETING REPRESENTATIVE): BMI 57 Dietary and exercise recommendations given Will review labs ordered 05/2021 Bariatric surgery consult placed Will continue to monitor weight Heel spur, left 08/07/2018 Pain of left heel 08/07/2018 Encounters Date Type Department Care Team Description 10/31/2024 Telephone [facility] [place] [id number] [address] Levi Briceño MD from Last 3 Months Immunizations Immunization Administration Dates Next Due DTP 11/23/1996, 4,1991,09/11,1991 [...] TONSILECTOMY, ADENOIDECTOMY, BILATERAL MYRINGOTOMY AND TUBES Bilateral Medical History Medical History Date Comments Sleep apnea Hypertension Menstrual problem Low back pain Female infertility Morbid obesity (HCC) Family History Medical History Relation Name Comments Diabetes Maternal Grandmother Flavia Bowles Obesity Maternal Grandmother Flavia Bowles Relation Name Status Comments Maternal Grandmother Flavia Bowles Alive Social History Tobacco Use Types Packs/Day Years Used Date Smoking Tobacco: Never Smokeless Tobacco: Never Tobacco Cessation:Counseling Given: Not Answered AUDIT-C Answer Date Recorded Q1: How often do you have a drink containing alc ohol? Never 06/06/2021 Average Number of Drinks Not on file 022 Frequency of Binge Drinking Not on file 05/19 PHQ-2 Answer Date Recorded PHQ-2 Total Score (If total score is 3 or more points, staff should administer the PHQ-9) 0 06/26/2021 Comments No Sex and Gender Information Value Date Recorded Sex Assigned at Not on file Legal Sex Female 7:41 AM TELEMARKETING REPRESENTATIVE Gender Identity Female 10/12/2021 12:47 PM CDT Sexual Orientation Straight 06/21/2021 7: 09 PM TELEMARKETING REPRESENTATIVE Occupation Industry Job Start Date Job End Date Not on file Not on file Not on file Not on file Obstetrics History Last Filed Vital Signs Vital Sign Reading Time Taken Comments Blood Pressure 168/115 10/13/2024 10:48 AM CDT Pulse 77 10/13/2024 10:48 AM CDT Temperature 36.3 C (97.3 F) 07/17/2021 1:34 PM TELEMARKETING REPRESENTATIVE Respiratory Rate 20 07/17/2021 1:34 PM TELEMARKETING REPRESENTATIVE Oxygen Saturation 98% 10/13/2024 10:48 AM CDT Inhaled Oxygen Concentration - - Weight 152 kg (335 lb) 10/13/2024 10:48 AM CDT Height 157.5 cm (5' 2) 10/13/2024 10:48 AM CDT Body Mass Index 61.27 10/13/2024 10:48 AM CDT Plan of Treatment Health Maintenance Due Date Last Done Comments Hepatitis C Screening 1990 Varicella Vaccines (2 of 2 - 2-dose childhood series) 03/14/2002 12/20/2001 DTaP/Tdap/Td Vaccine (6 - Tdap) 12/30/2005 12/29/2005, 11/23/1996, 08/14/1993, Additional history exists HPV Vaccines (1 - 3-dose SCDM series) 2018 Cervical Cancer Screening 06/06/2022 06/06/2021 Regular Well Visit/Exam 18-64 06/06/2022 06/06/2021 Depression Screening 06/26/2022 06/26/2021 Covid-19 Vaccine ( season) 2024 03/22/2021, 09/28/2020 Influenza Vaccine (#1) 2025 04/16/2022, 2020 Hepatitis B Screening Completed 11/23/1996 , 06/28/1996, 05/28/1996 Pneumococcal vaccine <65 Aged Out 03/22/2021 No longer eligible based on patient's age to complete this topic Procedures Procedure Name Priority Date/Time Associated Diagnosis Comments PAP AND HIGH RISK HPV, REFLEX TO GENOTYPING Routine 06/06/2021 9:40 AM TELEMARKETING REPRESENTATIVE Encounter for screening for malignant neoplasm of cervix from Last 3 Months or Most Recently Relevant to Health Maintenance Results * Pap and High Risk HPV, reflex to Genotyping (06/06/2021 9:40 AM TELEMARKETING REPRESENTATIVE) Swab (Pap test) 06/06/2021 9 :40 AM TELEMARKETING REPRESENTATIVE 06/06/2021 9:40 AM TELEMARKETING REPRESENTATIVE Narrative PATHOLOGY [facility] ([facility]) - 06/10/2021 3:03 PM TELEMARKETING REPRESENTATIVE [facility] Department of Pathology [address] [place] [id number] Final Report with Addendum Note to Patients: [...] questions and explain the details. Patient Name: SHIRLEY HENDERSON I. Address: [address] [place] [address] Gender: F : 1990 (Age: 31) Service: Laboratory Location: Lab Hospital #: [id number] Patient Type: Ref Lab Taken: 06/06/2021 Received: 06/06/2021 Accessioned:: 06/07/2021 Reported: 06/10/2021 Physician(s): Kathy Valdivia D.O. Diagnosis: Source of Specimen: SCREENING THIN PREP IMAGED PAP w/ HPV Specimen Adequacy: - Specimen satisfactory for interpretation; endocervical/transformation zone component absent or insufficient General Category: - Negative for intraepithelial lesion or malignancy MILDRED Sanchez(ASCP) Report Electronically Reviewed and Signed Out By MILDRED Sanchez(ASCP) 06/10/2021 15:03:44 Addenda: HPV Test Interpretation NEGATIVE for types 16, 18, 31, 33, 35, 39, 45, 51, 52, 56, 58, 59, 66 and 68. Test performed utilizing Gen-Probe Aptima assay. MILDRED Palomares(ASCP) Report Electronically Reviewed and Signed Out By MILDRED Palomares(ASCP) 06/08/2021 15:08:52 Specimen(s) Received: A: SCREENING THIN PREP IMAGED PAP w/ HPV Clinical History: Last Menstrual Period: unknown The Pap test is a screening test used to aid in the detection of cervical cancer and its precursors. It should not be the sole means by which malignant and premalignant lesions are diagnosed. Both false negative and false positive results may occur. It also has poor sensitivity for the detection of endometrial lesions and should not be used to evaluate suspected endometrial abnormalities. For these reasons it is most important to obtain Pap tests at regular intervals. The performance characteristics of some immunohistochemical stains, fluorescence in-situ hybridization tests and immunophenotyping by flow cytometry cited in this report (if any) were determined by the Surgical Pathology Department at [facility] as part of an ongoing air quality consultant program and in compliance with federally mandated regulations drawn from the Clinical Laboratory Improvement Act of 1988 (CLIA '88). Some of these tests rely on the use of analyte specific reagents and are subject to specific labeling requirements by the US Food and Drug Administration. Such diagnostic tests may only be performed in a facility that is certified by the Department of Health and Human Services as a high complexity laboratory under CLIA '88. The FDA has determined that such clearance or approval is not necessary. This test is used for clinical purposes. It should not be regarded as investigational or for research. Nevertheless, federal rules concerning the medical use of analyte specific reagents require that the following disclaimer be attached to the report: This test was developed and its performance characteristics determined by the Surgical Pathology Department [facility]. It has not been cleared or approved by the U. S. Food and Drug Administration. Carmen Bianchi DO LAB CYTOLOGY ORDERABLES Final Result PATHOLOGY [facility] ([facility] [address] [place] [address] from Last 3 Months or Most Recently Relevant to Health Maintenance Insurance [employer] [facility] OPEN ACCESS HE[employer] OPEN ACCESS Care Teams Slurry Control Tender Relationship Specialty Start Date End Date Kely Torres MD [address] [place] [address] PCP - General Obstetrics and Gynecology 01/20/24
[2025-01-20 10:08] LABS: EDSTREPNEGPOS1 Negative (Negative)
[2025-01-20 10:10] VITALS: BP 184/123; PULSE 83; RESP 16; TEMP 36.8; O2SAT 100
--- NOTE | 2025-01-20 10:25 | ED_ITS ---
HPI - URI/Sore Throat General Chief Complaint: Upper Respiratory Infection Stated Complaint: Sore Throat Time Seen by Provider: 01/20/25 10:26 Source: patient Mode of arrival: ambulatory Limitations: no limitations History of Present Illness HPI Narrative: 34 yo F presents with c/o sore throat, nasal congestion, Left ear pain, cough for 3 days. Afebrile. C/o wheezing. pt's BP elevated today. States that she does not have PCP and has been off medication for 1 month. No CP or SOB. All systems reviewed and negative except as noted above. Related Data Allergies Allergy/AdvReac Type Severity Reaction Status Date / Time sulfamethoxazole Allergy Intermediate rash Verified 01/20/25 09:52 trimethoprim Allergy Intermediate rash Verified 01/20/25 09:52 [facility] Past Medical History Medical History Diabetes Hypertension Surgical History Surgical History Hx of cholecystectomy History of tonsillectomy Social History Social History Smoking status: Never smoker Alcohol intake: current Alcohol use details: rare social Substance use type: does not use Gender identity (if verbalized by the patient): Female Comments At time of signature, agree with nursing past medical, surgical, social and family history. There is no relevant family history pertinent to the presenting complaint. Exam Narrative: GENERAL: This is a well-nourished, well-developed patient, in no apparent distress. HEAD: normocephalic, atraumatic. EYES: PERRL. Sclera clear/white. Vision is grossly intact. EARS: External ears normal, auditory canals clear and without drainage, fluid bilateral TMs with mild erythema, worse to left TM. No perforation bilaterally. Hearing grossly intact. NOSE: External nose normal with Purulent nasal drainage, moderate congestion. THROAT: Mucous membranes moist, Postnasal drainage without swelling or exudates. NECK: Neck supple, non-tender without lymphadenopathy, masses or thyromegaly. CARDIOVASCULAR: Regular rate and rhythm without murmurs, gallops, or rubs. RESPIRATORY: Clear to auscultation. Breath sounds equal bilaterally. No wheezes, rales, or rhonchi. SKIN: warm, Dry, intact with no suspicious lesions or rash, good texture and turgor. NEURO: awake, alert, and oriented to person, place and time. There were no obvious focal neurologic abnormalities. EXTREMITIES: No joint tenderness, effusion, or edema noted. Course Course Emergency Course: Level of Care: Express Care Visit Vital Signs Vital signs: Vital Signs Temperature 36.8 C 01/20/25 10:10 Pulse Rate 83 01/20/25 10:10 Respiratory Rate 16 01/20/25 10:10 Blood Pressure 184/123 H 01/20/25 10:10 Pulse Oximetry 100 01/20/25 10:10 Oxygen Delivery Room Air 01/20/25 10:10 Temperature 36.8 C 01/20/25 10:10 Pulse Rate 83 01/20/25 10:10 Respiratory Rate 16 01/20/25 10:10 Blood Pressure 184/123 H 01/20/25 10:10 Pulse Oximetry 100 01/20/25 10:10 Oxygen Delivery Room Air 01/20/25 10:10 Reviewed, this FIRE OFFICIAL manually rechecked BP and was 178/96 MDM - URI/Sore Throat MDM Narrative Medical decision making narrative: BP 178/96 at discharge. No CP or SOB. Has been off medication for 1 month. Does not have PCP. Will refer to oncall physician. Will give 1 month refill. Neg strep. Will treat with amoxicillin for serous otitis. Lab Data Labs: Lab Results 01/20/25 Range/Units 10:07 POC Grp A Strep Screen Negative (Negative) Discharge Plan Discharge Clinical Impression: Viral upper respiratory tract infection with cough, Acute serous otitis media of both ears, Elevated blood pressure reading in office with diagnosis of hypertension, Encounter for medication refill Patient Disposition: Home Condition: Stable Instructions: Hypertension (ED), Fluid In The Ear (Serous Otitis Media) (ED) Additional Instructions: your strep test was negative today. Your blood pressure was elevated today. Take medications as prescribed. Continue taking uopc-zlj-lhywtsk Mucinex as directed on packaging. Follow-up with primary care physician at next available appointment. If you are having chest pain or shortness of breath go to the ER. Patient Language: Dominican Prescriptions: New amoxicillin 875 mg tablet 875 mg PO Q12H 10 Days Qty: 20 0RF irbesartan 150 mg tablet 150 mg PO DAILY 30 Days Qty: 30 0RF Follow-up/Referrals: Mercedes Tejeda MD [Physician, Family Practice] Referral Note: establish care with a primary care physician PHYSICIAN,HEARING CARE PRACTITIONER [Primary Care Provider, Internal Medicine] Time of Disposition: 10:34
== END 2025-01-20 10:48 | disposition home or self-care (01) ==
PROVIDERS: Emergency Provider Nurse Practitioner Family
DX: J06.9 Acute upper respiratory infection, unspecified (principal); B97.89 Other viral agents as the cause of diseases classified elsewhere; H65.03 Acute serous otitis media, bilateral; R03.0 Elevated blood-pressure reading, without diagnosis of hypertension; Z76.0 Encounter for issue of repeat prescription; E11.9 Type 2 diabetes mellitus without complications; I10 Essential (primary) hypertension
CPT/HCPCS: 87081; 87880; 99213; G0463